=== PATIENT | female | born 1965 | race Caucasian/White ===

== ENCOUNTER → 2017-05-08 14:23 | Outpatient (CLI) | payer OTHER, SELFPAY ==
--- NOTE | 2017-05-08 14:30 | RAD_ITS ---
STUDY: X-RAY CHEST REASON FOR EXAM: Female, 51 years old. Cough. TECHNIQUE: PA and lateral views of the chest. COMPARISON: Portable AP upright chest x-ray July 14, 2016. FINDINGS: The lungs are clear and expanded. There is no demonstrated pleural abnormality. Normal size heart. Normal mediastinum and katherin. Normal visualized pulmonary arteries. Normal visualized aortic arch and descending thoracic aorta. There are mild degenerative changes of the mid thoracic spine. There is a ventral bowing/carinatum deformity of the sternum. There is stable degenerative osteoarthritis of the bilateral acromioclavicular joints. There is no demonstrated abnormality of the visualized soft tissue structures of the upper abdomen. RAD/Chest PA and Lateral IMPRESSION: No acute cardiopulmonary disease. Electronically Signed: Trever Maria MD at 19:02 EST , Service support ,
[2017-05-08 16:03] LABS: Absolute Lymphocyte Count 1.56 X10^3/ul (0.83-4.51); Absolute Neutrophil Count 4.9 X10^3/uL (2.0-7.7); Basophil# 0.01 X10^3/uL; Basophil% 0.1 % (0-1); Eosinophil# 0.12 X10^3/uL; Eosinophils% 1.7 % (0-5); Hematocrit 37.8 % (37-47); Hemoglobin 12.8 g/dl (12.0-15.0); Lymphocyte # 1.56 X10^3/ul (4.0); Lymphocyte % 21.7 % (19-41); Mean Corp Hgb Conc 33.9 g/gl (32-36); Mean Corpuscular Volume 91.5 fL (81-99); Mean Platelet Vol. 10.7 fl (6.2-12.0); Monocyte# 0.57 X10^3/uL; Monocyte% 7.9 % (0-10); Neutrophil # 4.92 X10^3/uL (2.7-7.7); Neutrophil % 68.5 % (47-70); Platelet Count 303 K/mm3 (150-450); RBC Distribution Width CV 12.6 % (11.6-14.6); RBC Distribution Width SD 41.8 fl (35.1-43.9); Red Blood Count 4.13 M/mm3 (4.2-5.4); White Blood Count 7.2 K/mm3 (4.4-11.0)
[2017-05-08 16:05] LABS: POSITIVE COUNT NO; POSITIVE DIFFERENTIAL NO; POSITIVE MORPHOLOGY NO
[2017-05-08 16:19] LABS: CRP < 2.90 mg/L (0.0-3.0)
== END ==
PROVIDERS: Family Provider Family Medicine; PCP Family Medicine; Visit Provider Family Medicine
DX: R05 Cough (principal)
CPT/HCPCS: 36415; 71046; 85025; 86140

== ENCOUNTER → 2017-08-19 16:55 | Outpatient (CLI) | payer OTHER, SELFPAY ==
[2017-08-19 17:57] LABS: Absolute Lymphocyte Count 1.73 X10^3/ul (0.83-4.51); Absolute Neutrophil Count 4.5 X10^3/uL (2.0-7.7); Basophil# 0.02 X10^3/uL; Basophil% 0.3 % (0-1); Eosinophil# 0.09 X10^3/uL; Eosinophils% 1.3 % (0-5); Hematocrit 39.4 % (37-47); Hemoglobin 13.7 g/dl (12.0-15.0); Lymphocyte # 1.73 X10^3/ul (4.0); Lymphocyte % 25.4 % (19-41); Mean Corp Hgb Conc 34.8 g/gl (32-36); Mean Corpuscular Hgb 31.7 pg (27.0-32.0); Mean Corpuscular Volume 91.2 fL (81-99); Mean Platelet Vol. 10.7 fl (6.2-12.0); Monocyte# 0.45 X10^3/uL; Monocyte% 6.6 % (0-10); Neutrophil # 4.51 X10^3/uL (2.7-7.7); Neutrophil % 66.3 % (47-70); Platelet Count 274 K/mm3 (150-450); RBC Distribution Width CV 12.2 % (11.6-14.6); RBC Distribution Width SD 39.9 fl (35.1-43.9); Red Blood Count 4.32 M/mm3 (4.2-5.4); White Blood Count 6.8 K/mm3 (4.4-11.0)
[2017-08-19 18:05] LABS: POSITIVE COUNT NO; POSITIVE DIFFERENTIAL NO; POSITIVE MORPHOLOGY NO
[2017-08-19 18:06] LABS: Erythrocyte Sedimentation Rate 9 mm/hr (0-30)
[2017-08-19 18:40] LABS: ALB/GLOB Ratio 1.1 RATIO (0.9-2.4); AST(SGOT) 21 U/L (15-37); Alanine Aminotransfer ALT/SGPT 32 U/L (13-56); Albumin, Serum 4.1 g/dL (3.2-5.0); Alkaline Phosphatase 74 U/L (45-117); Anion Gap 7 (5-15); BUN 16 mg/dL (7-18); BUN/Creat Ratio 19.2 RATIO (10-20); CRP < 2.90 mg/L (0.0-3.0); Chloride 102 mmol/L (98-107); Creatinine, Serum 0.84 mg/dL (0.55-1.02); EST Glomerular Filtration Rate 76 mL/min (>60); Est Glom Filt Rate - Afr Amer 92 mL/min (>60); Globulin 3.9 g/dL (2.2-4.2); Glucose 105 mg/dL (74-106); Potassium 3.6 mmol/L (3.5-5.1); Rheumatoid Factor < 10.0 IU/mL (<15); Sodium Level 139 mmol/L (136-145)
[2017-08-21 14:08] LABS: SJOGREN'S Anti-SS-A test < 0.2 AI (0.0-0.9); SJOGREN'S Anti-SS-B test < 0.2 AI (0.0-0.9)
[2017-08-22 11:23] LABS: ANTINUCLEAR ANTIBODIES DIRECT Positive (Negative); Anti-dsDNA Ab <1 IU/mL (0-9)
[2017-08-27 17:58] LABS: CCP IgG Antibodies 2 units (0-19); HLA B27 Positive (.)
== END ==
PROVIDERS: Family Provider Family Medicine; PCP Family Medicine
DX: M06.09 Rheumatoid arthritis without rheumatoid factor, multiple sites (principal)
CPT/HCPCS: 36415; 80053; 81374; 85025; 85652; 86038; 86140; 86200; 86225; 86235; 86431

== ENCOUNTER 2019-03-25 11:30 | Outpatient (RCR) | payer OTHER, SELFPAY ==
--- NOTE | 2019-01-14 12:23 | HP.OTEVAL ---
Patient's Visit Information MAZIN DEGROOT is a 53 year old F, referred to Occupational Therapy by Roberto Gasca, with a diagnosis of primary osteoarthritis right hand. Date of Evaluation: 01/12/19 Occupational Therapist: Breanne Mack, OTR/Rosa, CHT - Subjective Subjective: This 53 year old female was seen for OT eval following a right RF PIP joint replacement- sx was two weeks ago, pt arrives to clinic following stitches removal and in need of instructions on PROM. pt states she struggled with joint pain for years. Due to her limited ROM and pain pt decided to have right RF joint replacement. Pt arrives with stitches out and order for PROM of right RF- - ADLs Dressing: Button shirt, Necktie, Necklace Fasteners: Buttons, Zippers Bathing: Handle washcloth & soap, Squeeze shampoo bottle Kitchen: Chop with knife, Peel fruits & vegetables, Open jars, Open bottle caps, Take dish out of oven Miscellaneous: Play musical instrument - Pain right hand 2 Pain Intensity Range: 2, 7 - ROM MP: left 80 right 55 PIP: left 95 right 0 ROM Comments: PROM of right PIP 5* - Strength Strength Comments: will test at later date - Edema PIP: right 7.8 left 6.0 - Sensation Sensation Comments: finger get sharp shooting pains - Quick DASH-Disab of Arm,Shoulder& Hand Quick DASH Score: 76.3150 - Goals Goal:100% adherence to protocol: Yes Comment: PIP joint replacement protocol - Goal:Daily scar massage when approriate: Yes Goal:ROM equal to unaffected hand: Yes 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 Pt in need of skilled OT services 2-3x week for 6 weeks to progress pt during this recovery phase of her procedure. Today therapist ed. pt on PROM of right RF, edmea control, and scar mtg. Therapy will progress pt as anna. and per order to return pt to PLOF. pt demo understanding and agree to POC. Rehabilitation Potential: Good - Anticipated Interventions Anticipated Interventions: A/AAROM/PROM, Edema Control, Scar Care, Sensory Retraining, Wound Care, Modalities, Orthoses, Joint Protection/Energy Conservation - Visit Plan Frequency: 2-3x /Week Duration: 6 Weeks TEXT: Thank you for the opportunity to evaluate your patient. For Medicare and Medicare HMO plans, please review the plan of care and approve it. It will need to be FAXED BACK to us at [phone] for Medicare purposes. Please let me know if there are questions or concerns regarding this plan of care. Physician Signature: Date:
--- NOTE | 2019-03-25 12:22 | HP.OTDCSUM_ITS ---
HP - OT D/C Summary It has been my pleasure to treat MAZIN DEGROOT under orders from Roberto Gasca, for the diagnosis of primary osteoarthritis right hand for a total of 22 visit(s). Please see the following information for a summary of their discharge status. - Overall Improvement % Improvement: 100 - Objective Objective/Function: right RF PIP ROM -20-30/60-70. right access services assistant strength 18#. pt has made gains in ROM and strength- pt reports she is SANDRO with ADLS and due to limitations with strength will not be able to return to her [employer] career limitations. - Goals Patient Goals: Regain Mobility, Improve Fine Motor Skills, Use Hand/Wrist/Arm Normally Again Goal:100% adherence to protocol: Yes Goal:Daily scar massage when approriate: Yes Goal:ROM equal to unaffected hand: Yes Goal:Director Print/Pinch strength at least 75% of unaffected hand: Yes Goal:No pain with affected hand use: Yes Goal:PIP Circumferences equal to unaffected hand: Yes Goal:Full use of affected hand in daily activities including: Yes Goal:Decrease scar hypersensitivity: Yes - Plan Plan: D/C - D/C Information Discharge Comments: Pt progressed well following her right RF arthroplasty- pt is SANDRO with ADLS and IADLs- pt met goals in OT and to cont with use of her right UE for daily tasks. Due to replacement of joint pt will not be able to return to her [employer]/ [employer] work. 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 If there are questions or concerns regarding this patient's occupational therapy, please fell free to call me at [phone]. Thank you for the referral of this patient. Sincerely, Breanne Mack, OTR/L, CHT
== END 2019-03-25 19:00 | disposition home or self-care (01) ==
LOC: OT 11:30
PROVIDERS: Family Provider Family Medicine; PCP Family Medicine; Referring Provider Orthopaedic Surgery Hand Surgery; Visit Provider Orthopaedic Surgery Hand Surgery
DX: M19.041 Primary osteoarthritis, right hand (principal)
CPT/HCPCS: 97035; 97110; 97140; 97166; 97168; 97530

== ENCOUNTER → 2019-05-14 14:16 | Outpatient (CLI) | payer OTHER, SELFPAY ==
[2019-05-14 16:17] LABS: Rubella IgG 130.7 IU/mL
[2019-05-17 20:04] LABS: Mumps Antibody,IgG 72.6 AU/mL (Immune >10.9); Rubeola IgG Ab > 300.0 AU/mL (Immune >16.4)
== END ==
PROVIDERS: PCP Family Medicine; Visit Provider Family Medicine
DX: Z92.29 Personal history of other drug therapy (principal)
CPT/HCPCS: 36415; 86735; 86762; 86765

== ENCOUNTER → 2019-08-09 15:28 | Outpatient (CLI) | payer OTHER, SELFPAY ==
[2019-08-10 07:31] LABS: SARS-COV-2 TOTAL ABS Nonreactive (Nonreactive)
== END ==
PROVIDERS: PCP Family Medicine; Referring Provider Family Medicine; Visit Provider Family Medicine
DX: Z20.828 Contact with and (suspected) exposure to other viral communicable diseases (principal)
CPT/HCPCS: 86769; G2023

== ENCOUNTER → 2019-08-13 11:05 | Outpatient (CLI) | payer OTHER, SELFPAY ==
--- NOTE | 2019-08-13 11:09 | CDU_ITS ---
Reason For Study: ENCEPHALITIS Rt. Velocities/BP Lt. Velocities/BP Prox CCA 97/24 cm/sec. Prox CCA 125/41 cm/sec. Mid CCA 87/23 cm/sec. Mid CCA 108/32 cm/sec. Dist CCA 53/21 cm/sec. Dist CCA 115/30 cm/sec. Prox ICA 134/48 cm/sec. Prox ICA 90/24 cm/sec. Mid ICA 121/35 cm/sec. Mid ICA 92/33 cm/sec. Dist ICA 68/26 cm/sec. Dist ICA 110/44 cm/sec. Rt. ICA/CCA = 1.4. Lt. ICA/CCA = 1.0. Prox ECA 102/15 cm/sec. Prox ECA 86/15 cm/sec. Rt. Vert. 48/12 cm/sec. Lt. Vert. 43/17 cm/sec. Right Extracranial There is homogeneous, smooth atherosclerotic plaque noted in the right common carotid artery. There is heterogeneous, irregular atherosclerotic plaque noted in the right internal carotid artery. There is homogeneous, smooth atherosclerotic plaque noted in the right external carotid artery. Antegrade flow is noted in the right vertebral artery. There is heterogeneous, smooth atherosclerotic plaque noted in the right bulb. Left Extracranial There is homogeneous, smooth atherosclerotic plaque noted in the left common carotid artery. There is homogeneous, smooth atherosclerotic plaque noted in the left internal carotid artery. There is homogeneous, smooth atherosclerotic plaque noted in the left external carotid artery. Antegrade flow is noted in the left vertebral artery. There is homogeneous, smooth atherosclerotic plaque noted in the left bulb. Procedure Carotid Duplex [id number]. Exam performed in department. Interpretation Summary The degree of stenosis in the right internal carotid artery appears to approach 50%. Mild (<50%) stenosis left extracranial internal carotid. Flow within the vertebral arteries is antegrade bilaterally. Atherosclerotic plaque is noted in the carotid bulbs bilaterally, which does not appear to be hemodynamically significant. Ordering Physician: Coco, Gabino Referring Physician: Gabino Sepulveda Performed By: Lea Griffin, DAVONTE, RVT
== END ==
PROVIDERS: PCP Family Medicine; Referring Provider Family Medicine; Visit Provider Family Medicine
DX: I65.23 Occlusion and stenosis of bilateral carotid arteries (principal)
CPT/HCPCS: 93880

== ENCOUNTER → 2020-02-09 10:22 | Outpatient (CLI) | payer OTHER, SELFPAY | PROVIDERS: PCP Family Medicine; Visit Provider Family Medicine | DX: Z20.828 Contact with and (suspected) exposure to other viral communicable diseases (principal) | CPT/HCPCS: 36415; 86769 ==

== ENCOUNTER 2020-09-25 11:00 | Outpatient (RCR) | payer OTHER, SELFPAY ==
--- NOTE | 2020-09-02 09:19 | HP.PTEVAL_ITS ---
Patient's Visit Information MAZIN DEGROOT is a 54 year old F referred to Physical Therapy by Dr. Tate Pineda MD with a diagnosis of S/P labral repair and subsequent hip flexor tendonitis. Date of Evaluation: 08/22/20 Physical Therapist: Alex Mckinney DPT - Visit Plan Frequency: 2x /Week Duration: 4 Weeks Plan: Start with R hip stretching, manual DFM to R hip flexor, DN to same region. Add in posterior chain strengthening slowly adding in hip flexor strengthening (Do not over stress hip flexor tendon causing increased symptoms.) - Subjective Pt. is here today for her initial evaluation S/P labral repair and subsequent hi p flexor tendonitis. Pt. is ~ 3 months out of surgery at this point in time. She had been having PT at an alternate facility which was going well. She did recently have increased R hip pain, physician linked to hip flexor tendonitis and would like her to work on ROM and DN to calm her symptoms. 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 No issues with sleeping. No N/T. Pain with twisting on her R leg and with quick movements. She is walking well without issues. She is hopeful to reduce symptoms. She has been doing a good amount of strengthening and tolerating pretty well. She does report being stiff. Pt. is hopeful to reduce symptoms in order to get back to all work and recreational activities without limitations. - Pain R hip flexor Pain Intensity (Out of 10): 3 Pain Intensity Range: 1, 8 - Objective POSTURE: Pt. has good posture in stance. No wt. shifting, normal hip positioning. PALPATION: pt. has increased tenderness at R hip flexor, rectus femoris tendons. Pt. has minimal quad pain. NEURO: Normal sensation throughout BLEs. Normal DTR of B Achilles and patellar tendons. ROM: L hip- full motion no issues. R hip: flexion 110deg mild increase nW, ER 30deg increase NW (tightness), IR 15deg increase NW, ext 10deg NE (tightness), abd 45deg NE. MMT: LLE: 5/5 throughout. LLE- ankle 5/5 throughout; knee 5/5 throughout; hip- flexion 4/5, abd 4/5, ext 4/5. Mild increase in hip flexor pain with hip flexion testing. - Goals Goal 1:: LTG: Pt. to be I with HEP. Goal Time Frame: 4-6 Weeks Goal 2:: STG: Pt. to be able to walk unlimited distances without occurrence of increased R hip pain. Goal Time Frame: 2-4 Weeks Goal 3:: STG: PT. to have full R hip ROM without increase in symptoms. Goal Time Frame: 2 Weeks Goal 4:: LTG: Pt. to have increased strength of R hip to full without increase in symptoms. Goal Time Frame: 4-6 Weeks - Rehabilitation Potential Physical Therapy Diagnosis: Pt. has signs and symptoms consistent with S/P labral repair and subsequent hip flexor tendonitis. Pt. has marked hypomobility with hip ER motions and increased soreness with hip flexion resisted movements. Pt. would benefit from PT to increase her ROM and reduced her hip flexor symptoms. Rehabilitation Potential: Excellent - Anticipated Interventions Patient/Client Instruction: Educate patient on: Condition, Plan of Care, Risk Factors, Benefits of Fitness Program For the Purpose of:: To foster healthy habits, To improve decision making, To facilitate caregiver knowledge, To improve self management, To prevent re- injury, To improve ability to perform tasks related to life management Therapeutic Exercise to Include: Strength training, Endurance training, Body mechanics, Postural training, Flexibilty training, Gait and locomotor training, Passive ROM, Active ROM For the Purpose of:: To decrease pain, To decrease swelling/inflammation, To increase ROM, To improve nutrient delivery to tissue, To increase oxygenation perfusion, To improve muscle performance and motor function, To improve health of tissue, To decrease soft tissue restriction, To increase flexibility/ROM Manual Therapy Techniques to Include: Mobilization, Functional dry needling, Soft tissue mobilization For the Purpose of:: To decrease pain, To decrease swelling/inflammation, To increase ROM Thank you for the opportunity to evaluate your patient. For Medicare and Medicare HMO plans, please review the plan of care and approve it. It will need to be FAXED BACK to us at [phone] for Medicare purposes. For Medicare only, by signing this I certify the plan of care. Please let me know if there are questions or concerns regarding this plan of care. Physician Signature: Dat e:
--- NOTE | 2021-02-06 11:48 | HP.PTDCNRP_ITS ---
MAZIN DEGROOT was seen in my office for initial evaluation on 08/22/20. The following Plan of Care was established for this patient: Initial Frequency: 2x /Week Initial Duration: 4 Weeks Patient/Client Instruction: Educate patient on: Condition, Plan of Care, Risk Factors, Benefits of Fitness Program For the Purpose of:: To foster healthy habits, To improve decision making, To facilitate caregiver knowledge, To improve self management, To prevent re- injury, To improve ability to perform tasks related to life management Therapeutic Exercise to Include: Strength training, Endurance training, Body mechanics, Postural training, Flexibilty training, Gait and locomotor training, Passive ROM, Active ROM For the Purpose of:: To decrease pain, To decrease swelling/inflammation, To increase ROM, To improve nutrient delivery to tissue, To increase oxygenation perfusion, To improve muscle performance and motor function, To improve health of tissue, To decrease soft tissue restriction, To increase flexibility/ROM Manual Therapy Techniques to Include: Mobilization, Functional dry needling, Soft tissue mobilization For the Purpose of:: To decrease pain, To decrease swelling/inflammation, To increase ROM This patient was last seen in our office 09/25/20. Pertinent comments regarding their Physical therapy will appear below: Pt. was seen for her R hip labral tear. Pt. was working on ROM, manual/DN and progressed to posterior chain strengthening. She has not been seen in several months and will be DC from PT at this point in time. At this point I will be discontinuing this patient from physical therapy. I would be happy to see this patient again in the future if found appropriate by the physician. Thank you! Alex Mckinney, DPT Balance/Gait/Functional tests - Balance/Special Test Scores Lower Extremity Functional Score: 57
== END 2020-09-25 19:00 | disposition home or self-care (01) ==
LOC: PT 11:00
PROVIDERS: PCP Family Medicine; Referring Provider Orthopaedic Surgery Sports Medicine; Visit Provider Orthopaedic Surgery Sports Medicine
DX: M25.851 Other specified joint disorders, right hip (principal)
CPT/HCPCS: 97110; 97140; 97161

== ENCOUNTER → 2021-02-28 07:33 | Outpatient (CLI) | payer OTHER, SELFPAY ==
[2021-02-28 10:15] LABS: Basophil# 0.02 X10^3/uL; Basophil% 0.5 % (0-1); Eosinophil# 0.12 X10^3/uL; Eosinophils% 3.2 % (0-5); Hematocrit 40.7 % (37-47); Hemoglobin 13.9 g/dL (12.0-15.0); Lymphocyte % 31.9 % (19-41); Mean Corp Hgb Conc 34.2 g/dL (32-36); Mean Corpuscular Hgb 31.5 pg (27.0-32.0); Mean Corpuscular Volume 92.3 fL (81-99); Monocyte% 10.6 % (0-10); NRBC Flagged by Analyzer 0 % (0-5); Neutrophil # 2.01 X10^3/uL (2.7-7.7); Neutrophil % 53.5 % (47-70); Platelet Count 298 K/mm3 (150-450); RBC Distribution Width SD 40.9 fl (35.1-43.9); Red Blood Count 4.41 M/mm3 (4.2-5.4); White Blood Count 3.8 K/mm3 (4.4-11.0)
[2021-02-28 10:33] LABS: Vitamin D,25 Hydroxy 43.4 ng/mL
[2021-02-28 10:53] LABS: ALB/GLOB Ratio 1.1 RATIO (0.9-2.4); AST(SGOT) 31 U/L (15-37); Alanine Aminotransfer ALT/SGPT 40 U/L (13-56); Albumin, Serum 4.1 g/dL (3.2-5.0); Alkaline Phosphatase 85 U/L (45-117); Anion Gap 7 (5-15); BUN 13 mg/dL (7-18); BUN/Creat Ratio 20.6 RATIO (10-20); Calcium,Total 9.4 mg/dL (8.5-10.1); Chloride 97 mmol/L (98-107); Cholesterol 238 mg/dL (200); Creatinine, Serum 0.63 mg/dL (0.55-1.02); EST Glomerular Filtration Rate 104 mL/min (>60); Est Glom Filt Rate - Afr Amer 126 mL/min (>60); Globulin 3.8 g/dL (2.2-4.2); Glucose 89 mg/dL (74-106); High Density Lipoprotein 74 mg/dL; Potassium 3.9 mmol/L (3.5-5.1); Protein, Total 7.9 g/dL (6.4-8.2); Sodium Level 132 mmol/L (136-145); T4 Free Direct 0.77 ng/dL (0.76-1.46); Thyroid Stim Hormone (TSH) 3.18 uIU/mL (0.358-3.74); Triglycerides 81 mg/dL; Very Low Density Lipoprotein 16 mg/dL (5-40)
== END ==
PROVIDERS: PCP Family Medicine; Referring Provider Family Medicine; Visit Provider Family Medicine
DX: Z00.00 Encounter for general adult medical examination without abnormal findings (principal); E55.9 Vitamin D deficiency, unspecified; R53.83 Other fatigue
CPT/HCPCS: 36415; 80053; 80061; 82306; 84439; 84443; 85025

== ENCOUNTER → 2022-09-27 | Outpatient (CLI) | payer BC, SELFPAY ==
[2022-09-27 10:33] LABS: Erythrocyte Sedimentation Rate 1 mm/hr (0-30)
[2022-09-27 10:35] LABS: Absolute Lymphocyte Count 0.82 X10^3/uL (0.83-4.51); Absolute Neutrophil Count 3.1 X10^3/uL (2.0-7.7); Basophil# 0.02 X10^3/uL; Basophil% 0.5 % (0-1); Eosinophil# 0.06 X10^3/uL; Eosinophils% 1.4 % (0-5); Hematocrit 39.9 % (37-47); Hemoglobin 13.2 g/dL (12.0-15.0); Lymphocyte # 0.82 X10^3/ul (0.83-4.51); Lymphocyte % 18.5 % (19-41); Mean Corp Hgb Conc 33.1 g/dL (32-36); Mean Corpuscular Hgb 31.3 pg (27.0-32.0); Mean Corpuscular Volume 94.5 fL (81-99); Mean Platelet Vol. 10.8 fl (6.2-12.0); Monocyte# 0.46 X10^3/uL; Monocyte% 10.4 % (0-10); NRBC Flagged by Analyzer 0 % (0-5); Neutrophil # 3.06 X10^3/uL (2.7-7.7); Platelet Count 339 K/mm3 (150-450); RBC Distribution Width CV 11.9 % (11.6-14.6); RBC Distribution Width SD 40.8 fl (35.1-43.9); Red Blood Count 4.22 M/mm3 (4.2-5.4); White Blood Count 4.4 K/mm3 (4.4-11.0)
[2022-09-27 11:14] LABS: ALB/GLOB Ratio 1.1 RATIO (0.9-2.4); AST(SGOT) 24 U/L (15-37); Alanine Aminotransfer ALT/SGPT 31 U/L (13-56); Albumin, Serum 4.1 g/dL (3.2-5.0); Alkaline Phosphatase 94 U/L (45-117); Anion Gap 3 (5-15); BUN 10 mg/dL (7-18); BUN/Creat Ratio 15.4 RATIO (10-20); CRP < 2.90 mg/L (0.0-3.0); Calcium,Total 9.2 mg/dL (8.5-10.1); Chloride 98 mmol/L (98-107); Cholesterol 183 mg/dL (200); Creatinine, Serum 0.65 mg/dL (0.55-1.02); EST Glomerular Filtration Rate 99 mL/min (>60); Est Glom Filt Rate - Afr Amer 120 mL/min (>60); Globulin 3.7 g/dL (2.2-4.2); Glucose 108 mg/dL (74-106); High Density Lipoprotein 66 mg/dL; Potassium 4.3 mmol/L (3.5-5.1); Protein, Total 7.8 g/dL (6.4-8.2); Sodium Level 132 mmol/L (136-145); Triglycerides 185 mg/dL; Very Low Density Lipoprotein 37 mg/dL (5-40)
== END | disposition home or self-care (01) ==
PROVIDERS: PCP Family Medicine; Referring Provider Family Medicine; Visit Provider Family Medicine
DX: Z00.00 Encounter for general adult medical examination without abnormal findings (principal); R53.83 Other fatigue; R22.2 Localized swelling, mass and lump, trunk
CPT/HCPCS: 36415; 80053; 80061; 84443; 85025; 85652; 86140

== ENCOUNTER 2022-10-08 08:00 | Outpatient (RCR) | payer BC, SELFPAY ==
--- NOTE | 2022-09-27 09:47 | HP.PTEVAL_ITS ---
Patient's Visit Information Visit Information Visit Information: MAZIN DEGROOT is a 56 year old F referred to Physical Therapy by Dr. Andrew Collins DO with a diagnosis of CERVICALGIA, SPRAIN OF R SC JT. Date of Evaluation: 09/27/22 Physical Therapist: Galina Tirado PT, Cert MDT Visit Plan Frequency: 2-3x /Week Duration: 4-6 Weeks Plan: *CHECK AUTH NEXT VISIT: RECORD # OF VISITS APPROVED AND EXPIRATION DATE. CHECK CODES APPROVED WITH POC* ASK ABOUT bloodwork RESULTS. CONSIDER US TO RIGHT NECK, SHLD AND SC JT REGIONS. POSTURE CORRECTION/STRENGTHENING, INSTRUCTION IN APPROPRIATE BODY MECHANICS AND ACTIVITY MODIFICATIONS. YURIDIA UE ROM, STRETCHING AND STRENGTHENING. HEP INSTRUCTION. Subjective Subjective: Work/Leisure: RETIRED DUE TO TORN HIP cartilage and CAN NOT SHOE HORSES ANYMORE. 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 PATIENT REPORTS SHE PLAYS [employer] A LOT. PATIENT REP ORTS SHE IS ACTIVE - HIKES, WALKS AND PLAYS [employer] A LOT. Disability: NO Present symptoms: R NECK PAIN. RIGHT CHEST PAIN THAT RADIATES INTO R NECK AND SHLD AREA. STATES SHE HAS LONG HISTORY OF NECK PAIN AND THE NEW R CHEST PAIN HAS FLARED UP HER NECK. DENIES R UE NUMBNESS AND TINGLING. Present since: ABOUT 2 MONTHS AGO Pain Scale: Worst - 8/10 Least - 2/10 Currently: 3-4/10. (NECK PAIN IS STAYING THE SAME. SLIGHT IMPROVEMENT IN R CHEST PAIN OVER THE LAST 2 MONTHS). 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 Symptoms at onset: NO PAIN JUST A BUMP IN R CHEST. Worse: VERY DEEP PALPATION ON BUMP TO FEEL A TENDERNESS BUT RIGHT CHEST AND SHOULD PAIN CAN SUDDENLY WAKE HER UP AT NIGHT WITH CERTAIN MVMTS. SITTING. LEANING DOWN AND PICKING THINGS UP FROM THE FLOOR. PUTTING ARMS CLOSE TOGETHER TO PICK SOMETHING UP. TRICEP PUSH UPS. REACHING ACROSS CHEST WITH R UE. BAD POSTURE/LOOKING DOWN. Better: PAIN MEDICATION - HYDROCODONE, WINE, AVOIDING OR STOPPING PROVOKATIVE MVMTS/POSITIONS. CHIROPRACTIC ADJUSTMENTS WITH LAST ONE BEING APPROX DEVANTE 3 2023. Disturbed sleep: YES Previous history/Previous treatment: CHIROPRACTIC ADJUSTMENTS SINCE AGE 18. C67 HNP AND SPUR VERY RECENTLY DX'S BUT PATIENT REPORTS SHE HAS HAD ISSUES WITH HER NECK, SHOULDERS AND BACK FOR YEARS AND YEARS. STATES HAD SKULL FRACTURE . 8 YEARS AGO WENT THROUGH A LOT OF PT FOR SHLD. R SHLD INJECTION. H/O R SHLD BLADE PAIN WITH POSSIBLE DX OF SUPRISPINATUS TEAR. This episode: CHIROPRACTIC Dizziness: NO Tinnitis: YES Nausea: YES WHEN IN A LOT OF PAIN Shortness of Breath: NO Difficulty Swollowing: NO Gait: NORMAL Unexplained weight loss: NO Imaging: RECENT NECK X-RAYS THEN MRI SHOWING HNP AND BONE SPUR C67 PER PATIENT REPORT. HAD MRI OF R SHLD AND clavicle AND THESE SHOWED FLUID IN CHEST AREA AND ARTHRITIS IN SHOULDER. PATIENT ALSO REPORTS HISTORY OF YURIDIA AC JOINT ARTHRITIS. PMH/Recent major surgery: ARTHRITIS. ACUSTIC NEUROMA, L2 FX 2006, CONCUSSION AND BRAIN BLEED 2007. L RIB FX'S...I'VE HAD A LOT OF TRAUMA TO MY BODY. R KNEE SX FOR TORN MENISCUS. R HIP SX FOR TORN LABRUM. R FINGER JOINT REPLACED 2018 OTHER: PATIENT REPORTS DR. COLLINS THINKS SHE HAS ARTHRITIS IN HER SC JOINT. STATES THAT DR. ORTEZ ORDERED BLOOD WORK TO MAKE SURE SHE DOESN'T HAVE INFECTION. Objective Objective: Sitting Posture/Standing Posture: INCREASED KYPHOSIS. FH. RSH'S L > R. NO TORTICOLLIS. Active Correction of posture: BETTER. PATIENT REPORTS DECREASED R CHEST AREA PAIN WITH POSTURE CORRECTION. Other Observations: INDEP GAIT AND TRANSFERS. Sensory deficit: YURIDIA UE LIGHT TOUCH SENSATION GROSSLY INTACT AND SYMMETRICAL ROM deficit: YURIDIA UE'S WFL BUT R SHLD IR TESTING IN SUPINE IS LIMITED AND REPRODUCES R CHEST, SHLD AND NECK SX'S THAT PATIENT REPORTS SHE IS HERE FOR TODAY. SUPINE IR ROM WITH 90 DEG ABD = 40 DEG. Motor deficit: PATIENT IS RIGHt HAND DOMINANT WITH A R HOME HEALTH AID STRENGTH OF 35 LBS, L 45 LBS. L UE STRENGTH IS WFL. R UE: SHLD 4-/5, ELBOW 5/5. PATIENT C/O INCREASED R NECK, SHLD AND CHEST PAIN WITH R SHLD TESTING INTO FLEX, HORIZ ABD, HORIZ ADD AND IR. Cervical Mvmt Loss: Flex: NIL Pro: NIL Ext: MIN TO MOD Ret: MOD RSB: MIN LSB: MOD R Rot: MIN L Rot: MIIN Postural strength: FAIR Palpation: NO ACUTE TENDERNESS WITH LIGHT PALPATION OF RIGHT clavicle, shld or sternum regions. Balance/Special Test Scores Oswestry Neck Score: 19 Goals Goal 1:: DECREASE C/O R NECK, CHEST AND SHLD PAIN Goal Time Frame: 4-6 Weeks Goal 2:: IMPROVE PERSONAL CARE, LIFTING, READING, SLEEP, WORK, DRIVING AND RECREATIONAL FUNCTION Goal Time Frame: 4-6 Weeks Goal 3:: INSTRUCT IN PROPHYLAXIS Goal Time Frame: 4-6 Weeks Anticipated Interventions Patient/Client Instruction: Educate patient on: Condition, Plan of Care and Risk Factors For the Purpose of:: To improve self management Therapeutic Exercise to Include: Strength training, Body mechanics, Postural training, Flexibilty training, Neuromotor development and Scapular Strength/Stabilization For the Purpose of:: To decrease pain, To increase ROM, To improve muscle performance and motor function, To increase tolerance to activity/condition/position and To improve ability of physical actions for home/community/work/leisure TENS: Yes IF ES: Yes Ultrasound (thermal/non thermal): Yes For the Purpose of:: To decrease pain and To improve nutrient delivery to tissue Text: Thank you for the opportunity to evaluate your patient. For Medicare and Medicare HMO plans, please review the plan of care and approve it. It will need to be FAXED BACK to us at [phone] for Medicare purposes. For Medicare only, by signing this I certify the plan of care. Please let me know if there are questions or concerns regarding this plan of care. Physician Signature: Date:
--- NOTE | 2022-12-31 10:45 | HP.PTDCNRP_ITS ---
Patient Information Patient Information: MAZIN DEGROOT was seen in my office for initial evaluation on 09/27/22. The following Plan of Care was established for this patient: POC Established Initial Frequency: 2-3x /Week Initial Duration: 4-6 Weeks Anticipated Interventions Patient/Client Instruction: Educate patient on: Condition, Plan of Care and Risk Factors For the Purpose of:: To improve self management Therapeutic Exercise to Include: Strength training, Body mechanics, Postural training, Flexibilty training, Neuromotor development and Scapular Strength/Stabilization For the Purpose of:: To decrease pain, To increase ROM, To improve muscle performance and motor function, To increase tolerance to activity/co ndition/position and To improve ability of physical actions for home/community/work/leisure TENS: Yes IF ES: Yes Ultrasound (thermal/non thermal): Yes For the Purpose of:: To decrease pain and To improve nutrient delivery to tissue Last Seen Last Seen: This patient was last seen in our office 10/10/22. Pertinent comments regarding their Physical therapy will appear below: This patient has not returned to Physical Therapy and is appropriate to return to MD for further follow-up as needed. At this point I will be discontinuing this patient from physical therapy. I would be happy to see this patient again in the future if found appropriate by the physician. Thank you! Galina Tirado, PT, Cert MDT Balance/Gait/Functional tests Balance/Special Test Scores Oswestry Neck Score: 19
== END 2022-10-08 19:00 | disposition home or self-care (01) ==
LOC: PT 08:00
PROVIDERS: PCP Family Medicine; Referring Provider Orthopaedic Surgery; Visit Provider Orthopaedic Surgery
DX: S43.61XD Sprain of right sternoclavicular joint, subsequent encounter (principal); M54.2 Cervicalgia
CPT/HCPCS: 97035; 97162; 97530

== ENCOUNTER → 2022-10-09 | Outpatient (CLI) | payer BC, SELFPAY ==
--- NOTE | 2022-10-09 07:30 | US_ITS ---
STUDY: SUPERFICIAL ULTRASOUND - RIGHT SUPRACLAVICULAR REGION. REASON FOR EXAM: Female, 56 years old. LOCALIZED SWELLING, MASS AND LUMP,supraclavicular TECHNIQUE: A superficial ultrasound was performed with real-time and static pagan-scale imaging. COMPARISON: None. FINDINGS: The palpable abnormality corresponds to a 1.9 cm x 2 cm x 1 cm complex heterogeneous solid mass. Biopsy recommended. US/Head/Neck Soft Tissue IMPRESSION: 1.9 cm x 2 cm x 1 cm complex heterogeneous solid mass corresponding to the palpable lump. Biopsy recommended. Electronically Signed: Lance Tolbert MD at 15:09 EDT ,
== END | disposition home or self-care (01) ==
LOC: US 07:27
PROVIDERS: PCP Family Medicine; Referring Provider Family Medicine; Visit Provider Family Medicine
DX: R22.2 Localized swelling, mass and lump, trunk (principal)
CPT/HCPCS: 76536

== ENCOUNTER → 2023-02-18 | Outpatient (CLI) | payer BC, SELFPAY ==
[2023-02-18 17:45] LABS: Absolute Lymphocyte Count 1.42 X10^3/uL (0.83-4.51); Absolute Neutrophil Count 3.6 X10^3/uL (2.0-7.7); Basophil# 0.02 X10^3/uL; Basophil% 0.4 % (0-1); Eosinophil# 0.07 X10^3/uL; Eosinophils% 1.2 % (0-5); Hematocrit 39.5 % (37-47); Lymphocyte # 1.42 X10^3/ul (0.83-4.51); Lymphocyte % 25.1 % (19-41); Mean Corp Hgb Conc 32.9 g/dL (32-36); Mean Corpuscular Volume 94.3 fL (81-99); Mean Platelet Vol. 10.7 fl (6.2-12.0); Monocyte% 8.8 % (0-10); NRBC Flagged by Analyzer 0 % (0-5); Neutrophil # 3.64 X10^3/uL (2.7-7.7); Neutrophil % 64.3 % (47-70); Platelet Count 291 K/mm3 (150-450); RBC Distribution Width CV 11.9 % (11.6-14.6); RBC Distribution Width SD 40.9 fl (35.1-43.9); Red Blood Count 4.19 M/mm3 (4.2-5.4); White Blood Count 5.7 K/mm3 (4.4-11.0)
[2023-02-18 18:02] LABS: CRP < 2.90 mg/L (0.0-3.0); Uric Acid 4.1 mg/dL (2.6-6.0)
[2023-02-18 18:18] LABS: Erythrocyte Sedimentation Rate 2 mm/hr (0-30)
[2023-02-20 12:08] LABS: ANTINUCLEAR ANTIBODIES DIRECT Negative (Negative)
== END | disposition home or self-care (01) ==
LOC: MTLAB 15:29
PROVIDERS: PCP Family Medicine; Referring Provider Orthopaedic Surgery; Visit Provider Orthopaedic Surgery
DX: M17.12 Unilateral primary osteoarthritis, left knee (principal)
CPT/HCPCS: 36415; 84550; 85025; 85652; 86038; 86140; 86431

== ENCOUNTER → 2023-03-25 | Outpatient (CLI) | payer BC, SELFPAY | END | disposition home or self-care (01) | LOC: PSN 09:32 | PROVIDERS: PCP Family Medicine; Referring Provider Physician Assistant; Visit Provider Physician Assistant | DX: Z01.810 Encounter for preprocedural cardiovascular examination (principal) | CPT/HCPCS: 93005 ==

== ENCOUNTER 2023-07-13 08:57 | Emergency (ER) | payer BC, SELFPAY ==
[2023-07-13 08:58] VITALS: BP 197/79; PULSE 81; RESP 18; TEMP 36.6; O2SAT 100; BMI 27.6
--- NOTE | 2023-07-13 09:28 | EDS_ITS ---
HPI HPI - Female History of Present Illness Chief Complaint: Complaint Detail of Chief Complaint: Dysuria and frequency Informant: patient Narrative Narrative: Patient presents the emergency department complaint of dysuria and frequency that started this morning. Patient states she had a mild backache yesterday but she had been on vacation and was up taking pictures all day and has history of arthritis so she did not think much of it. Today she described feeling like she needed to urinate frequently but only get small amounts of urine out. She felt chilled last night but has not had a fever. She has had no vomiting. No prior history of kidney stones. She described a deep pain over her bladder earlier today. PFSH PFSH Home Medications cholecalciferol (vitamin D3) 50 mcg (2,000 unit) capsule (Vitamin D3) 2,000 unit PO DAILY 07/14/16 [History Last Taken Unknown] hyalur ac-chond sul-colg II-AA 40 mg-80 mg-400 mg capsule (Hyaluronic Acid(with chondroitin-collagenII)) 1 ea PO DAILY 07/14/16 [History Last Taken Unknown] poxlpvvpjnij-Cl-xlnn-minerals (Multiple Vitamin, Womens tablet) 1 ea PO DAILY 07/14/16 [History Last Taken Unknown] turmeric 450 mg-turmeric root extract 50 mg capsule 500 mg PO DAILY 07/14/16 [History Last Taken Unknown] phenazopyridine 200 mg tablet (Pyridium) 200 mg PO TID #10 tabs 07/13/23 [Rx Last Taken Unknown] sulfamethoxazole 800 mg-trimethoprim 160 mg tablet 1 tab PO BID #14 TABLETS 07/13/23 [Rx Last Taken Unknown] Allergy/AdvReac Type Severity Reaction Status Date / Time Beta-Blockers Allergy Rash Verified 07/13/23 08:57 (Beta-Adrenergic Bloc bisoprolol Allergy Rash Verified 07/13/23 08:57 clarithromycin [From Biaxin] Allergy Rash Verified 07/13/23 08:57 latex Allergy Unknown Verified 07/13/23 08:57 morphine Allergy Angioedema Verified 07/13/23 08:57 tramadol Allergy Hives Verified 07/13/23 08:57 caffeine AdvReac Unknown Verified 07/13/23 08:57 Social History Smoking Status: Never smoker ROS ROS ED Review of Systems ROS Unobtainable: other Constitutional Constitutional ED: Reports lethargy; Denies chills, fever(s), sweats or weight loss Eyes Eyes: Denies blurry vision, change in vision or diplopia ENT ENT ED: Denies rhinorrhea or sore throat Cardiovascular Cardiovascular: Denies chest pain, orthopnea or racing heartbeat Respiratory/Chest Respiratory/Chest: Denies cough, dyspnea, dyspnea on exertion, orthopnea or sputum Gastrointestinal Gastrointestinal: Denies abdominal pain, diarrhea, nausea or vomiting Genitourinary Genitourinary ED: Reports dysuria and urinary frequency; Denies hematuria Musculoskeletal Musculoskeletal: Denies arthralgias, back pain, myalgias or neck pain Integumentary Denies abscess, Abrasions or rash Neurologic Neurologic: Denies headache(s) or weakness Psychiatric Psychiatric: Denies anxiety, depression or suicidal thoughts Endocrine Endocrinology: Denies polydipsia, polyphagia or polyuria Hematologic/Lymphatic Hematologic/Lymphatic: Denies easy bleeding, easy bruising or lymphadenopathy Allergic/Immunologic Allergic/Immunologic ED: Denies mouth swelling, tongue swelling or urticaria EXAM Physical Exam Const Vital Signs: 07/13/23 08:58 Temperature 97.9 F Temperature Source Temporal Pulse Rate 81 Respiratory Rate 18 Blood Pressure 197/79 H Blood Pressure Mean 118 Pulse Ox 100 Oxygen Delivery Method Room Air Positive well nourished and well developed General Appearance ED: well developed and NAD HEENT Reports TM's clear and moist mucous membranes normocephalic and atraumatic; Negative for trauma or tenderness Tympanic Membrane ED: Yes TM's clear Eyes PERRL and EOMs intact bilaterally General Eye ED: Negative for pale conjunctiva or scleral icterus Neck no lymphadenopathy, supple and no JVD General: Negative for tenderness Chest Wall inspection of chest normal and palpation of chest normal Chest: Negative for tenderness Resp normal respiratory effort and clear to auscultation bilaterally Effort and Inspection: Negative for respiratory distress or pain with movement Auscultation: Negative for rhonchi, wheezes or diminished lung sounds Cardio regular rate, regular rhythm, S1 normal heart sound, S2 normal heart sound and no murmurs Peripheral Pulses: pulses 2+ throughout GI normal to inspection, nondistended, normoactive bowel sounds, soft to palpation, non-tender, non-distended and no masses Back/Spine no CVA tenderness and no thoracic nor lumbar tenderness Extremity normal to inspection General Extremety ED: Negative for edema General Extremity: Negative for edema Neuro oriented x3, CN's II-XII intact bilaterally, no sensory deficits noted and gait normal Sensorium / Orientation: awake, alert, oriented to person, oriented to place and oriented to time Motor Exam: strength 5/5 throughout and strength abnormal Psych mental status grossly normal Skin no rashes or lesions noted and no wounds MDM MDM MDM Narrative Medical decision making narrative: Patient presents with dysuria as well as urgency and frequency and some hematuria. Clinically suspect UTI. Urinalysis obtained showed 500 leukocyte esterase as well as 25-50 RBCs and 25-50 WBCs and +1 bacteria. Culture was sent. Patient was started on Bactrim and Pyridium. Advised to return if worsening pain, fever, vomiting, or condition should worsen anyway. Lab Data Attestation: I reviewed the patient's lab results. Labs: Laboratory Results - last 24 hr 07/13/23 09:33 Urine Color Yellow Urine Clarity Sl. Cloudy Urine pH 7.0 Ur Specific [place] 1.005 Urine Protein Negative Urine Glucose (UA) Normal Urine Ketones Negative Urine Occult Blood 250 H Urine Nitrite Negative Urine Bilirubin Negative Urine Urobilinogen Normal Ur Leukocyte Esterase 500 H Urine RBC 25-50 SEEN Urine WBC 25-50 SEEN Ur Squamous Epith Cells 0 SEEN Urine Bacteria 1+ Urine Mucus 0 SEEN Discharge Plan Triage Chief Complaint: Complaint ED Provider: Sabina Quintero Dx/Rx/DC Orders Clinical Impression: Urinary tract infection Instructions: Urinary Tract Infections in Women, ED Cystitis Female Adult Prescriptions: New sulfamethoxazole-trimethoprim [sulfamethoxazole-trimethoprim] 800-160 mg tablet 1 tab PO BID Qty: 14 0RF phenazopyridine [Pyridium] 200 mg tablet 200 mg PO TID Qty: 10 0RF No Action imjdaxuzfqbp-Tu-ixqy-minerals [Multiple Vitamin, Womens] 1 EACH tablet 1 ea PO DAILY Patient Comments: multivitamin cholecalciferol (vitamin D3) [Vitamin D3] 2,000 UNIT capsule 2,000 unit PO DAILY Patient Comments: suppliment hyalur ac-chond sul-colg II-AA [Hyaluronic Acid (chond-collgn)] 1 EACH capsule 1 ea PO DAILY Patient Comments: suppliment turmeric-turmeric root extract 500 MG capsule 500 mg PO DAILY Patient Comments: suppliment Primary Care Provider: Gabino Sepulveda Referrals: Gabino Sepulveda, [Primary Care Provider] - 3-5 Days Disposition Disposition: Home, Self Care
[2023-07-13 09:37] LABS: Mucous, Urine 0 SEEN /hpf (<or=2+); Squamous Epithelial Cells - UA 0 SEEN /hpf (5-10)
[2023-07-13 09:39] LABS: Color, Urine Yellow (Yellow); Glucose, Dipstick Normal (Normal); Ketone-Dipstick Negative (Negative); Leukocyte Esterase-Dipstick 500 /ul (Negative); Nitrite-Dipstick Negative (Negative); Occult Blood-Urine 250 /ul (Negative); Protein-Dipstick Negative (Negative); Specific Gravity, Urine 1.005 (1.002-1.030); Urine Bilirubin Dipstick Negative (Negative); Urine Clarity Sl. Cloudy (Clear); Urine Urobilinogen Normal (Normal)
[2023-07-13 09:49] LABS: Bacteria 1+ /hpf (None Seen); Red Blood Cells-Urine 25-50 SEEN /hpf (0-5); White Blood Cells 25-50 SEEN /hpf (0-5)
[2023-07-13] MEDS: Phenazopyridine 95 MG Tablet 190 MG PO (10:55)
[2023-07-13] MEDS: Smz/Tmp Ds Tablet 1 TABLET PO (10:56)
== END 2023-07-13 11:00 | disposition home or self-care (01) ==
PROVIDERS: Emergency Provider Emergency Medicine; PCP Family Medicine; Visit Provider Emergency Medicine
DX: N39.0 Urinary tract infection, site not specified (principal)
CPT/HCPCS: 81001; 87077; 87086; 87088; 87186; 99283

== ENCOUNTER → 2024-05-07 | Outpatient (CLI) | payer BC, SELFPAY ==
--- NOTE | 2024-05-07 14:47 | RAD_ITS ---
PROCEDURE: CHEST PA AND LATERAL TECHNIQUE: Frontal and lateral views of the chest. COMPARISON: None. FINDINGS: Lungs: Lungs clear of pneumonia and congestion. Pleura: No pleural effusions, thickening, or pneumothorax. Heart: Normal in size and configuration. Mediastinum/Leyla: Unremarkable. Great vessels: Unremarkable. Bones/soft tissues: Unremarkable. RAD/Chest PA and Lateral IMPRESSION: No active cardiopulmonary disease. Reading Location: [place] [id number]
== END | disposition home or self-care (01) ==
LOC: MTRAD 14:44
PROVIDERS: PCP Family Medicine; Referring Provider Family Medicine; Visit Provider Family Medicine
DX: R05.9 Cough, unspecified (principal)
CPT/HCPCS: 71046

== ENCOUNTER 2024-11-14 02:26 | Emergency (ER) | payer BC, SELFPAY ==
[2024-11-14 02:33] VITALS: BP 157/108; PULSE 93; RESP 20; TEMP 36.7; O2SAT 100; BMI 29.3
--- NOTE | 2024-11-14 03:00 | EKG12_ITS ---
Test Reason : DYSRHYTHMIA Blood Pressure : */* mmHG Vent. Rate : 65 BPM Atrial Rate : 65 BPM P-R Int : 156 ms QRS Dur : 84 ms QT Int : 412 ms P-R-T Axes : 57 -11 32 degrees QTcB Int : 428 ms Normal sinus rhythm Cannot rule out Septal infarct (cited on or before 14-Jul-2016) Abnormal ECG Confirmed by Andrew Paris ([id number]), slot editor GENEVA LARRY ([id number]) on 11/15/2024 1:24:41 PM Referred By: ER Confirmed By: Andrew Paris
--- NOTE | 2024-11-14 03:00 | EX.ED.DYSGE1 ---
HPI History of Present Illness Chief Complaint: Hypertension Narrative Narrative: Patient is a 58-year-old female presenting to the emergency department for heart pounding and reports of hypertension. Patient has a past medical history of paroxysmal supraventricular tachycardia. She does not take any prescribed medications only vitamins at home. States that she did have a very stressful week last week. She reports that this evening she woke up to use the restroom when she noted that her heart was pounding. States it feels like she is on a hike. She denies any chest pain or shortness of breath. Denies headache, visual changes, numbness or weakness in her extremities, abdominal pain, nausea or vomiting. States she does not have a history of hypertension and does not take any antihypertensive medications. States that she laid back down in bed and continued to feel her heart pounding so she got up and checked her blood pressure and it was in the systolics of 170s. States she waited 5 minutes and checked her blood pressure again and it was in the 190s and then waited another 5 minutes and checked again and it was in the 200s and therefore woke her up to bring her into the emergency department. [facility] Medical History Osteoarth NOS-up/arm Home Medications ?Medication ?Instructions ?Recorded ?Last Taken ?Type cholecalciferol (vitamin D3) 50 2,000 unit PO DAILY 07/14/16 Unknown History mcg (2,000 unit) capsule (Vitamin D3) rowzwuxhvsck-Fu-xvgs-minerals 1 ea PO DAILY 07/14/16 Unknown History (Multiple Vitamin, Womens tablet) Allergy/AdvReac Type Severity Reaction Status Date / Time Beta-Blockers Allergy Rash Verified 11/14/24 02:29 (Beta-Adrenergic Bloc bisoprolol Allergy Rash Verified 11/14/24 02:29 clarithromycin (From Biaxin) Allergy Rash Verified 11/14/24 02:29 latex Allergy Unknown Verified 11/14/24 02:29 morphine Allergy Angioedema Verified 11/14/24 02:29 tramadol Allergy Hives Verified 11/14/24 02:29 caffeine AdvReac Unknown Verified 11/14/24 02:29 Social History Smoking Status: Never smoker ROS ROS ED ROS Narrative See HPI EXAM Physical Exam Narrative Exam Narrative: Vital signs: Reviewed General: Alert and oriented x 3. No acute distress HEENT: Head is normocephalic and atraumatic, sinuses nontender, pupils equal round and reactive. Nares are patent. Oropharynx and throat exams normal. Neck: Supple without lymphadenopathy nontender Cardiovascular: Regular rate and rhythm, no murmurs. No rubs or gallops. Normal S1 and S2 Respiratory: Clear to auscultation bilaterally. No wheezes, rales, rhonchi Abdominal: Soft and nontender. Normal bowel sounds. No guarding or rebound. Nonsurgical abdomen Extremities: No tenderness. No bruising. Normal range of motion. Normal sensation. Skin: No rash or redness. Neurological: Cranial nerves II through XII are grossly intact. Normal strength and sensation. Normal cerebellar function The rest of the physical exam is unremarkable Const Vital Signs: 11/14/24 02:33 Temperature 98.0 F Temperature Source Oral Pulse Rate 93 Respiratory Rate 20 H Blood Pressure 157/108 H Blood Pressure Mean 124 Pulse Ox 100 Oxygen Delivery Method Room Air NIHSS NIHSS Initial: 1a Level of Consciousness: 0 1b LOC Questions (Score 2 if aphasic/stupor): 0 1c LOC Commands (Only score 1st attempt): 0 2 Best Gaze (If aphasic, use reflexive mvmts.): 0 3 Visual: 0 4 Facial Palsy: 0 5 Motor Arm Right (UN = amputation/fusion): 0 5 Motor Arm Left: 0 6 Motor Leg Right: 0 6 Motor Leg Left: 0 7 Limb ataxia (Only + if out of proportion): 0 8 Sensory (Aphasia/stupor=0 or 1, coma=2): 0 9 Best Language: 0 10 Dysarthria (mute, coma=2, intubated=UN): 0 11 Extinction and Inattention (only scored if +): 0 Total Score: 0 MDM MDM MDM Narrative Medical decision making narrative: Patient is a 58-year-old female presenting to the emergency department for heart pounding and hypertension. Patient was seen and examined. Vitals are stable. She is hypertensive on arrival to 157/108. Resting in bed comfortably no acute distress. Patient has no signs of hypertensive urgency or emergency. She is having no headache, strokelike symptoms, shortness of breath, chest pain, abdominal pain or urinary symptoms. Given her symptoms of heart pounding I will obtain an EKG, troponin, electrolytes including magnesium and TSH as well as a chest x-ray. EKG shows normal sinus rhythm, no ST elevation or depression. No abnormal T wave inversions. No dysrhythmia. CBC with no leukocytosis and a normal hemoglobin. BMP with acute on chronic hyponatremia 127, otherwise no significant normalities. Usually appears to be around 132. Troponin and reflex stable at 9. TSH is elevated at 6.8, free T4 and T3 ordered and are within normal limits. Chest x-ray reviewed by myself, no opacities, pneumothorax, widened mediastinum. Radiology read with no acute radiographic abnormalities. Patient reevaluated and updated on the findings. She was notified of her elevated TSH but normal T3 and T4 and recommended follow-up with her PCP to continue watching this for signs of subclinical hypothyroidism. She was instructed to follow salt diet and follow-up with her primary care doctor for recheck of her sodium level as well. Negative cardiac workup. At this time I do not think it is indicated to start the patient on antihypertensives. I recommended that she follow-up with her primary care doctor to discuss this and to journal her blood pressures at home until then. Patient discharged from the Emergency Department. I do not feel that the patient's evaluation reveals any acute reason for admission at this time. I instructed them to either follow-up with their primary care physician or promptly return to the Emergency Department for reevaluation should symptoms worsen or new symptoms develop. I explained what symptoms would indicate the need to return to the emergency department. Shared decision making was used. The patient voiced understanding of the treatment plan and is agreeable with it. Clinical impression Hypertension Heart palpitations Elevated TSH History & Record Review Discussion w/independent historian: Patient and Family Additional record(s) reviewed:: Prior labs Lab Data Attestation: I reviewed the patient's lab results. Radiography Diagnostic Testing: Clinical Impression(s) from Imaging Studies Chest X-Ray 11/14/24 03:23 IMPRESSION: Negative for acute cardiopulmonary disease. Reading Location: [id number] Discharge Plan Triage Chief Complaint: Hypertension ED Provider: Ijeoma Sosa Dx/Rx/DC Orders Clinical Impression: Heart palpitations, HTN (hypertension) Instructions: Understanding High Blood Pressure, Understanding Heart Palpitations, ED Hypertension, To Be Confirmed Prescriptions: No Action Multiple Vitamin, Womens 1 EACH tablet 1 ea PO DAILY Patient Comments: multivitamin cholecalciferol (vitamin D3) [Vitamin D3] 2,000 UNIT capsule 2,000 unit PO DAILY Patient Comments: suppliment Primary Care Provider: Gabino Sepulveda Referrals: Gabino Sepulveda, DO [Primary Care Provider] - 2 Days Activity Restrictions/Additional Instructions: Follow-up with your primary care doctor to have your thyroid levels rechecked as well as to recheck your blood pressure to determine if you need to be started on any antihypertensives. Your evaluation in the Emergency Department did not reveal any acute reason for admission. However, I want to emphasize that you may be early in the course of a disease process or illness even if it is not present. For this reason you should follow-up within 24 hours for reevaluation with either your primary care physician or if necessary back here in the Emergency Department. You should return to the Emergency Department immediately if your symptoms worsen or new symptoms develop. Print Language: Syriac Disposition Disposition: Home, Self Care Discharge Date/Time: 11/14/24 05:17
[2024-11-14 03:16] LABS: Hematocrit 36.1 % (37-47); Hemoglobin 13.1 g/dL (12.0-15.0); Immature Granulocytes Count 0.010 X10^3/uL (0.0-0.0); Mean Corp Hgb Conc 36.3 g/dL (32-36); Mean Corpuscular Volume 90.7 fL (81-99); Mean Platelet Vol. 10.2 fl (6.2-12.0); NRBC Flagged by Analyzer 0 % (0-5); Platelet Count 307 K/mm3 (150-450); RBC Distribution Width CV 11.7 % (11.6-14.6); RBC Distribution Width SD 39.3 fl (35.1-43.9); Red Blood Count 3.98 M/mm3 (4.2-5.4); White Blood Count 6.1 K/mm3 (4.4-11.0)
--- NOTE | 2024-11-14 03:23 | RAD_ITS ---
PROCEDURE: CHEST 1 VIEW (PORTABLE) 11/14/2024 REASON FOR EXAM: CHEST PAIN TECHNIQUE: Frontal view of the chest. COMPARISON: May 2024. FINDINGS: Hardware and support lines: None. Heart: Negative. Lungs: Negative for infiltrates, or pulmonary edema. Pleura: No pleural thickening. No pleural effusion. Mediastinum and aorta: Negative for hilar adenopathy. Mildly tortuous thoracic aorta. Bones: Moderate degenerative changes of the shoulders. Slight curvature of the spine. Age-appropriate degenerative changes of the spine. Other: Remainder of the exam negative. RAD/Chest 1 View (Portable) IMPRESSION: Negative for acute cardiopulmonary disease. Reading Location: [id number]
[2024-11-14 03:27] VITALS: BP 172/77; PULSE 73; RESP 16; O2SAT 100
[2024-11-14 03:35] LABS: Anion Gap 13 (5-15); BUN 7 mg/dL (4-19); BUN/Creat Ratio 13.5 RATIO (10-20); Calcium,Total 9.4 mg/dL (7.6-11.0); Carbon Dioxide 22.7 mmol/L (21.0-32.0); Chloride 92 mmol/L (98-108); Estimated Creatinine Clearance 117.30 ml/min (50-250); Glucose 107 mg/dL (70-99); Magnesium 2.2 mg/dL (1.5-2.2); Potassium 3.5 mmol/L (3.3-5.1); Troponin T High Sensitivity 9 ng/L (<=14)
--- OUTSIDE RECORDS SUMMARY | 2024-11-14 03:50 | XMS RPT_ITS | CCD ---
Author Organization [facility] Care Team Providers Care Informaticist Name Role Phone PETER HERNÁNDEZ Unavailable Unavailable PETER HERNÁNDEZ Unavailable Unavailable NO REFERRING DR Unavailable Unavailable PETER HERNÁNDEZ Unavailable Unavailable IMCA Unavailable Unavailable HERNÁNDEZPETER Unavailable Unavailable IMCA Unavailable Unavailable LEVI, LINH Unavailable Unavailable IMCA Unavailable Unavailable PETER HERNÁNDEZ Unavailable Unavailable IMCA Unavailable Unavailable PETER HERNÁNDEZ Unavailable Unavailable IMCA Unavailable Unavailable IMCA Unavailable Unavailable LEVI, LINH Unavailable Unavailable IMCA Unavailable Unavailable ANTHONY, GALINA Unavailable Unavailable IMCA Unavailable Unavailable IMCA Unavailable Unavailable PETER HERNÁNDEZ Unavailable Unavailable IMCA Unavailable Unavailable IMCA Unavailable Unavailable PETER HERNÁNDEZ Unavailable Unavailabl e ANTHONY, GALINA Unavailable Unavailable PETER HERNÁNDEZ Unavailable Unavailabl e PETER HERNÁNDEZ Unavailable Unavailabl e PETER HERNÁNDEZ Unavailable Unavailabl e DARIA, PETER CALLUM Unavailable Unavailabl e HERNÁNDEZ, PETER CALLUM Unavailable Unavailabl e LEVI, LINH Unavailable Unavailable Angelina Ortez Unavailable Unavailable Unavailable Dr. Tracey Aguirre Attending Unav ailable Self, Referral Referring Unavailable Dr. Angelina Ortez Primary Care Unavaila DEBI Harris Attending Unavailable Self, Referral Referring Unavailable Dr. Angelina Ortez Primary Care Unavaila CECILE Benjamin Attending Unavailable Self, Referral Referring Unavailable Dr. Angelina Ortez Primary Care UnavailDr. Tracey Rosales Attending Unav ailable Dr. Angelina Ortez Primary Care UnavailAngelina Brooks DO Primary Care Provider [phone] Angelina Ortez DO Primary Care Provider Dr. Angelina Ortez Primary Care Provider [phone] Dr. Andrew Paris Attending Provider [phone] OTTONIEL Nguyen Referring Provider [phone] Angelina Ortez Primary Care Provider [phone] Dr. Andrew Paris Attending Provider OTTONIEL Nguyen Referring Provider [phone] Coco, Angelina Primary Care Unavailable Coco, Angelina Attending Unavailable Coco, Angelina Referring Unavailable Ungur, Remus Attending Unavailable Coco, Angelina Primary Care Unavailable Ferkarla, Suzette Attending Unavailable Ferkarla, Suzette Referring Unavailable Coco, Angelina Primary Care Unavailable Coco, Angelina Referring Unavailable Wero, Suzette Attending Unavailable Coco, Angelina Primary Care Unavailable Coco, Angelina Primary Care Unavailable Wero, Suzette Attending Unavailable Coco, Angelina Referring Unavailable Dr. Angelina Ortez DO Primary Care Provider [phone] Dr. Angelina Ortez DO Attending Provider [phone] Dr. Angelina Ortez DO Referring Provider [phone] Coco SOL, Angelina Garza Primary Care Provider Coco SOL, Angelina Garza Unavailable RJ WATERMAN Attending Unavailab le ANGELINA ORTEZ Primary Care Unavailable ELLY FALCON Attending Unavailable ANGELINA ORTEZ Primary Care Unavailable Allergies Allergy Classification Reported Allergen(s) Allergy Type Date of Onset Reaction(s) Facility (7 sources) Adrenergic Beta-Antagonist s; Translations: [BETA-BLOCKERS (BETA-ADRENERGI C BLOCKING AGTS)] Propensity to adverse reactions (disorder) 5 Dermatitis, Hives, Photosensitivity , Rash, Swelling [facility] Repository (15 sources) clarithromycin; Translations: [CLARITHROMYCIN ] Drug Allergy 7 GI Upset [facility] Repository (15 sources) Latex; Translations: [LATEX] Propensity to adverse reactions (disorder) 5 Dermatitis, Hives, Itching, Rash, Swelling [facility] Repository (19 sources) morphine; Translations: [MORPHINE] Drug Allergy 5 Anaphylaxis [facility] Repository (19 sources) traMADol; Translations: [TRAMADOL] Drug Allergy 5 Dermatitis, Hives, Itching, Palpitations, Rash, Shortness of breath, Swelling [facility] Repository (7 sources) Adrenergic Beta-Antagonist s Allergy to substance 7 [facility] (11 sources) Bisoprolol; Translations: [bisoprolol] Drug Allergy 7 Rash [facility] (7 sources) Caffeine Drug Allergy 7 [facility] (4 sources) Atenolol; Translations: [atenolol] Drug Allergy [facility] Work Phone: (4 sources) Clarithromycin; Translations: [Biaxin] Drug Allergy [facility] Work Phone: (4 sources) NSAIDs; Translations: [NSAIDs] Allergy to drug (finding) [facility] Work Phone: (4 sources) Latex Exam Gloves MISC; Translations: [Latex Exam Gloves MISC] Allergy to drug (finding) [facility] Work Phone: (5 sources) Aspartame; Translations: [ASPARTAME] Drug Allergy 3 GI Upset, Other [facility] (5 sources) Non-steroidal anti-inflammato ry agent; Translations: [NSAIDS (NON-STEROIDAL ANTI-INFLAMMATO RY DRUG)] Propensity to adverse reactions 3 Cardiac arrhythmia/arres t, GI Upset [facility] Work Phone: (5 sources) Oats preparation; Translations: [OATS] Drug Allergy 3 Other [facility] Work Phone: (1 source) tree nut, unspecified Propensity to adverse reactions 3 Hives [facility] Work Phone: (1 source) Adrenergic Beta-Antagonist s Drug allergy (disorder) 4 [facility] Repository (1 source) Bisoprolol Drug Allergy 4 [facility] Repository (1 source) Caffeine Drug Allergy 4 [facility] Repository (2 sources) EPINEPHrine; Translations: [EPINEPHRINE] Drug Allergy 0 Agitation, Cardiac arrhythmia/arres t, Palpitations [facility] Medications Current Medications Medication Drug Class(es) Dates Sig (Normalized) Sig (Original) acetaminophen 325 mg / HYDROcodone bitartrate 5 mg oral tablet (6 sources) Opioid Agonist HYDROcodone-acet valentin ophen (Morris) 5-325 mg tablet TAKE 1 OR 2 TABLETS BY MOUTH EVERY 6 HOURS FOR PAIN Active apixaban 2.5 mg oral tablet (2 sources) Factor Xa Inhibitor Start: 03-21-2023 take 1 tablet by mouth twice daily Eliquis 2.5 mg tablet Take 1 tablet (2.5 mg) by mouth 2 times a day. 03/21/2023 Active bimatoprost 0.3 mg/ml ophthalmic solution (2 sources) Prostaglandin Analog Start: 02-28-2023 bimatoprost (Lumigan) 0.03 % ophthalmic solution apply TO eyelid margin IN EACH EYE AT BEDTIME 02/28/2023 Active cholecalciferol 0.05 mg oral capsule (9 sources) Vitamin D Start: 07-14-2016 take 1 capsule by mouth once daily Cholecalciferol (Vitamin D3) (Vitamin D3) 2,000 UNIT capsule Active 2000 U PO DAILY July 14, 2016 12:00am Start: 07-11-2014 take 1 capsule by mo [facility] once daily cholecalciferol (Vitamin D-3) 50 mcg (2,000 unit) capsule Take 1 capsule (50 mcg) by mouth once daily. 07/11/2014 Active fexofenadine hydrochloride 180 mg oral tablet (6 sources) Histamine-1 Receptor Antagonist fexofenadine (Allegr a) 180 mg tablet Take by mouth. Active Kavya Allergy 180 MG Oral Tablet Quantity: 0 Refills: 0 Ordered: 18-Oct-2022 DO Active flavoring agent, bulk, (Grap efruit) oil (2 sources) flavoring agent, bulk, (Grapefruit) oil Grapefruit seed extract Active flavoring agent, bulk, (Grapefruit) oil Grapefruit seed extract 0 Active Hyalur Ac-Chond Sul-Colg Ii-Aa (Hyaluronic Acid (Chond-Collgn)) 1 EACH capsule (7 sources) Start: 07-14-2016 take 1 capsule by mouth once daily Hyalur Ac-Chond Sul-Colg Ii-Aa (Hyaluronic Acid (Chond-Collgn)) 1 EACH capsule Active 1 NMA PO DAILY July 14, 2016 12:00am Start: 07-14-2016 take 1 capsule by mo uth once daily Hyalur Ac-Chond Sul-Colg Ii-Aa (Hyaluronic Acid (Chond-Collgn)) 1 EACH capsule Active 1 EACH PO DAILY July 13, 2016 11:00pm Start: 07-14-2016 take 1 capsule by mo uth once daily Hyalur Ac-Chond Sul-Colg Ii-Aa (Hyaluronic Acid (Chond-Collgn)) 1 EACH capsule Active 1 EACH PO DAILY July 14, 2016 12:00am hyalur ac/chond sul/colg II/ AA (HYALURONIC ACID, CHOND-COLLGN, ORAL) (2 sources) hyalur ac/chond sul/colg II/AA (HYALURONIC ACID, CHOND-COLLGN, ORAL) Take by mouth. Active hyalur ac/chond sul/colg II/AA (HYALURONIC ACID, CHOND-COLLGN, ORAL) Take by mouth. 0 Active multivitamin tablet (2 sources) Start: 07-11-2014 take 1 tablet by mouth once daily multivitamin tablet Take 1 tablet by mouth once daily. 07/11/2014 Active Start: 07-11-2014 take 1 tablet by ramez th once daily multivitamin tablet Take 1 tablet by mouth once daily. 0 07/11/2014 Active Vliwsclucdoy-Ag-Gjrw-Mineral s (Multiple Vitamin, Womens) 1 EACH tablet (7 sources) Start: 07-14-2016 take 1 tablet by mouth once daily Qaaoqesnvdcd-Es-Mrch-Minerals (Multiple Vitamin, Womens) 1 EACH tablet Active 1 NMA PO DAILY July 14, 2016 12:00am Start: 07-14-2016 take 1 tablet by ramez th once daily Coqgmfegfbsf-Ic-Lgnb-Minerals (Multiple Vitamin, Womens) 1 EACH tablet Active 1 EACH PO DAILY July 13, 2016 11:00pm Start: 07-14-2016 take 1 tablet by ramez th once daily Kypdoqqzisuk-Bh-Oexw-Minerals (Multiple Vitamin, Womens) 1 EACH tablet Active 1 EACH PO DAILY July 14, 2016 12:00am phenazopyridine hydrochloride 200 mg oral tablet (2 sources) Start: 07-13-2023 take 1 tablet by mouth three times daily Phenazopyridine (Pyridium) 200 mg tablet Active 200 mg PO THREE TIMES A DAY July 13, 2023 12:00am sulfamethoxazole 800 mg / trimethoprim 160 mg oral tablet (2 sources) Dihydrofolate Reductase Inhibitor Antibacterial, Sulfonamide Antimicrobial Start: 07-13-2023 Sulfamethoxazole-Tri methoprim 800-160 mg tablet Active 1 {tbl} PO TWICE A DAY July 13, 2023 12:00am Start: 07-13-2023 take 1 tablet by ramez th twice daily Sulfamethoxazole-Trimethoprim Active 1 T ABLET PO TWICE A DAY July 13, 2023 12:00am Turmeric-Turmeric Root Extract (11 sources) Start: 07-14-2016 take 1 capsule by mouth once daily Turmeric-Turmeric Root Extract 500 MG capsule Active 500 mg PO DAILY July 14, 2016 12:00am Start: 07-14-2016 take 500 mg by mouth once daily Turmeric-Turmeric Root Extract Active 500 MG PO DAILY July 13, 2016 11:00pm Start: 07-14-2016 take 500 mg by mouth once daily Turmeric-Turmeric Root Extract Active 500 MG PO DAILY July 14, 2016 12:00am Turmeric 500 MG Oral Capsule Quantity: 0 Refills: 0 Ordered: 18-Oct-2022 DO Active turmeric root extract 500 mg capsule (2 sources) Start: 11-14-2017 take 1 capsule by mouth once daily turmeric root extract 500 mg capsule Take 500 mg by mouth once daily. 11/14/2017 Active Start: 11-14-2017 take 1 capsule by mo [facility] once daily turmeric root extract 500 mg capsule Take 500 mg by mouth once daily. 0 11/14/2017 Active vitamin b12 1 mg oral tablet (6 sources) Vitamin B12 cyanocobalamin ( Vitamin B-12) 1,000 mcg tablet Take by mouth. Active Vitamin B-12 100 0 MCG Oral Tablet Quantity: 0 Refills: 0 Ordered: 18-Oct-2022 DO Active Completed/Discontinued Medications Medication Drug Class(es) Dates Sig (Normalized) Sig (Original) Centrum Adults Oral Tablet (4 sources) Centrum Adults O ral Tablet Quantity: 0 Refills: 0 Ordered: 18-Oct-2022 DO Active 1 ml fentaNYL 0.05 mg/ml injection (1 source) Opioid Agonist Start: 12-13-2022 End: 12-13-2022 fentaNYL PF (Sublimaze) injection flavoring agent (GRAPEFRUIT MISC) (1 source) End: 03-27-2023 flavoring agent (GRAPEFRUIT MISC) Take by mouth. Grapefruit seed extract 0 03/27/2023 Discontinued (Entered in Error) Grapefruit Seed EXTR (4 sources) Grapefruit Seed EXTR Quantity: 0 Refills: 0 Ordered: 18-Oct-2022 DO Active 5 ml midazolam 1 mg/ml injection (1 source) Benzodiazepine Start: 12-13-2022 End: 12-13-2022 midazolam (Versed) injection Vitamin D3 CAPS (4 sources) Vitamin D3 CAPS Quantity: 0 Refills: 0 Ordered: 18-Oct-2022 DO Active Problems Active Problems Problem Classification Problem Date Documented Date Episodic/Chronic Cardiac dysrhythmias (7 sources) Paroxysmal supraventricular tachycardia; Translations: [Supraventricular tachycardia] 07-14-2016 Chronic Headache; including migraine (7 sources) Headache; Translations: [Headache] 07-15-2016 Episodic Nutritional deficiencies (7 sources) Vitamin D deficiency; Translations: [Vitamin D deficiency, unspecified] 07-14-2016 Chronic Osteoarthritis (7 sources) Osteoarthritis; Translations: [Unspecified osteoarthritis, unspecified site] 07-14-2016 Chronic Other connective tissue disease (5 sources) Other specified soft tissue disorders; Translations: [Swelling of clavicular region] 03-28-2023 Episodic Other connective tissue disease (1 source) Disorder of soft tissue; Translations: [Other specified soft tissue disorders] 12-13-2022 Episodic Other ear and sense organ disorders (2 sources) Bilateral sensory hearing loss; Translations: [Sensorineural hearing loss, bilateral] Onset: 07-05-2024 07-05-2024 Chronic Other ear and sense organ disorders (2 sources) Sensorineural hearing loss, bilateral; Translations: [Sensorineural hearing loss, bilateral] Onset: 07-05-2024 Chronic Other nervous system disorders (2 sources) H/O: encephalitis; Translations: [Personal history of infections of the central nervous system] Onset: 07-05-2024 07-05-2024 Episodic Other nervous system disorders (2 sources) Personal history of infections of the central nervous system; Translations: [Personal history of infections of the central nervous system] Onset: 07-05-2024 Episodic Other non-traumatic joint disorders (3 sources) Pain in right shoulder; Translations: [Shoulder pain, right] 12-13-2022 Episodic Other nutritional; endocrine; and metabolic disorders (7 sources) Obese class I; Translations: [Obesity, unspecified] 07-14-2016 Chronic Other skin disorders (5 sources) Finding of neck region; Translations: [Swelling, mass, or lump in head and neck] 12-13-2022 Episodic Other skin disorders (2 sources) Localized swelling, mass and lump, neck; Translations: [Localized swelling, mass and lump, neck] Onset: 11-20-2022 Episodic Unclassified (1 source) Unknown / UNK(Unknown) Onset: 11-25-2016 Unclassified (1 source) Cough, unspecified; Translations: [Cough, unspecified] Onset: 05-20-2024 Varicose veins of lower extremity (1 source) Varicose veins of bilateral lower extremities with pain; Translations: [Varicose veins of bilateral lower extremities with pain] Onset: 06-26-2017 Episodic Past or Other Problems Problem Classification Problem Date Documented Da te Episodic/Chronic Administrative/social admission (3 sources) Encounter for pre-employment examination; Translations: [Patient encounter status] Onset: 08-11-2023 08-11-2023 Episodic Unclassified (1 source) VARICOSE VEINS Onset: 11-25-2016 Unclassified (2 sources) Onset: 03-27-2023 Resolved: 07-05-2024 03-27-2023 Urinary tract infections (3 sources) Urinary tract infectious disease; Translations: [Urinary tract infection, site not specified] Onset: 07-17-2023 07-13-2023 Episodic Results Test Name Value Interpretation Reference Range Facility Chest PA and Lateralon 05-07 Chest PA and Lateral [facility] [address] [place] [id number] Chest PA and Lateral MR#: [id number] Acct: [id number] Name: MELY DEGROOT Rep #: [id number] : 1965 F 58 From: Torin Arias MD PCP: Dr. Angelina Ortez DO Status: REG CLI Study: Chest PA and Lateral Date of Exam: 05/07/24 Exam# [id number] Ordering Dr: Angelina Ortez DO PROCEDURE: CHEST PA AND LATERAL TECHNIQUE: Frontal and lateral views of the chest. COMPARISON: None. FINDINGS: Lungs: Lungs clear of pneumonia and congestion. Pleura: No pleural effusions, thickening, or pneumothorax. Heart: Normal in size and configuration. Mediastinum/Leyla: Unremarkable. Great vessels: Unremarkable. Bones/soft tissues: Unremarkable. RAD/Chest PA and Lateral IMPRESSION: No active cardiopulmonary disease. Reading Location: [place] [address] CC: Dr. Angelina Ortez DO Home Health Registered Nurse: Signed Normal [facility] Quantiferon TB-Gold+on 08-12 QFT MITOGEN CLIFFORD > 10.00 Normal . [facility] Comment on above: Performed By: #### L [id number] #### [facility] [address] [place], [place], [id number] QFT NIL VALUE 0 IU/mL Normal . [facility] Comment on above: Performed By: #### L [id number] #### [facility] [address] [place], [place], [id number] QFT TB GOLD+ Comment Normal . [facility] Comment on above: Result Comment: Hong tiFERON-TB Gold Plus is a qualitative indirect test for M tuberculosis infection (including disease) and is intended for use in conjunction with risk assessment, radiography, and other medical and diagnostic evaluations. The QuantiFERON-TB Gold Plus result is determined by subtracting the Nil value from either TB antigen (Ag) value. The Mitogen tube serves as a control for the test. Performed By: #### L [id number] #### [facility] [address] [place], [place], [id number] QFT TB POS CRIT Negative Normal Negative [facility] Comment on above: Result Comment: No r esponse to M tuberculosis antigens detected. Infection with M tuberculosis is unlikely, but high risk individuals should be considered for additional testing (ATS/IDSA/CDC Clinical Practice Guidelines, 2017). The reference range is an Antigen minus Nil result of <0.35 IU/mL. The specimen received for QuantiFERON testing was incubated by the ordering institution. Specific procedures outlined in our Directory of Services and in the package insert for the QuantiFERON Gold (In Tube) test must be followed to enable for proper stimulation of cells for the production of interferon gamma. Chemiluminescence immunoassay methodology Performed at: [facility] [id number] Metal Welder: Arjun Rosario PhD, Phone: [phone] Performed By: #### L [id number] #### [facility] [address] [place], [address] QFT TB1+ AG CLIFFORD 0 IU/mL Normal . [facility] Comment on above: Performed By: #### L [id number] #### [facility] [address] [place], [address] QFT TB2+ AG CLIFFORD 0.01 IU/mL Normal . [facility] Comment on above: Performed By: #### L [id number] #### [facility] [address] [place], [address] Internal Medicine Office Vis lianet 08-11-2023 Internal Medicine Office Visit [facility] [address] [place] [address] [address] [place], [place] [address] OFFICE VISIT Date of Service: 08/11/23 MR#: [id number] Acct: [id number] Name: MELY DEGROOT Rep #: [id number] : 1965 Provider: BRITT wright Age/Sex: 57/F Location[place] [facility] Status: Signed Intake Vital Signs 07/13/23 08:58 Height 5 ft 5 in Intake Visit Reasons: PRE EMP/NON DOT/PHYSICAL Allergies Beta-Blockers (Beta-Adrenergic Bloc Allergy (Verified 07/13/23 08:57) Rash bisoprolol Allergy (Verified 07/13/23 08:57) Rash clarithromycin (From Biaxin) Allergy (Verified 07/13/23 08:57) Rash latex Allergy (Verified 07/13/23 08:57) Unknown morphine Allergy (Verified 07/13/23 08:57) Angioedema tramadol Allergy (Verified 07/13/23 08:57) Hives caffeine Adverse Reaction (Verified 07/13/23 08:57) Unknown [facility] Social History Smoking Status: Never smoker HPI HPI Details: MELY DEGROOT, is a 57 F who presents to urgent care today for preemployment physical. 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 Please see corresponding documentation. She does have a history of paroxysmal supraventricular tachycardia that is well-controlled. No episodes in the past 3 years. ROS Const Constitutional: No anorexia (as noted in HPI) Office Procedures Physical Exam Coding PE Coding Pre-employment PE: Yes Coding Level of Care Code No Charge Diagnoses Pre-employment examination Z02.1 Assessment and Plan Assessment and Plan (1) Pre-employment examination: Status: Acute Orders: Orders Quantiferon TB-Gold+ Today Z02.1 - Encounter for pre-employment examination 08/11/23 1421 Date Suzette Candelarioignshelly Signature: Date (if applicable) CC: Normal [facility] Office Visit Reporton 2023 Office Visit Report [facility] [address] [place] [address] OFFICE VISIT Date of Service: 08/11/23 MR#: [id number] Acct: [id number] Patient: MELY DEGROOT Rep #: [id number] : 1965 Provider: BRITT wright Age/Sex: 57/F Location: [facility] Status: Signed Intake Vital Signs 07/13/23 08:58 Height 5 ft 5 in Weight: 165 lb 11.2 oz BMI 27.6 BP 197/79 H Respiration 18 Pulse 81 Temp 97.9 F Temp Source Temporal Pulse Oximetry (%) 100 Intake Visit Reasons: FIT TEST/QUANTIFERON Chief Complaint: fit test tb test Textile Engraver Required: No Accompanied by: Self Is patient in pain?: No Allergies Beta-Blockers (Beta-Adrenergic Bloc Allergy (Verified 08/11/23 16:42) Rash bisoprolol Allergy (Verified 08/11/23 16:42) Rash clarithromycin (From Biaxin) Allergy (Verified 08/11/23 16:42) Rash latex Allergy (Verified 08/11/23 16:42) Unknown morphine Allergy (Verified 08/11/23 16:42) Angioedema tramadol Allergy (Verified 08/11/23 16:42) Hives caffeine Adverse Reaction (Verified 08/11/23 16:42) Unknown Medications ???Medication ???Instructions ???Recorded ???Confirmed ???Type cholecalciferol (vitamin D3) 50 2,000 unit PO DAILY 07/14/16 08/11/23 History mcg (2,000 unit) capsule (Vitamin D3) hyalur ac-chond sul-colg II-AA 40 1 ea PO DAILY 07/14/16 08/11/23 History mg-80 mg-400 mg capsule (Hyaluronic Acid(with chondroitin-collagenII )) lrwcwgvtpste-Oi-sqto-m inerals 1 ea PO DAILY 07/14/16 08/11/23 History (Multiple Vitamin, Womens tablet) turmeric 450 mg-turmeric root 500 mg PO DAILY 07/14/16 08/11/23 History extract 50 mg capsule phenazopyridine 200 mg tablet 200 mg PO TID #10 tabs 07/13/23 08/11/23 Rx (Pyridium) sulfamethoxazole 800 1 tab PO BID #14 TABLETS 07/13/23 08/11/23 Rx mg-trimethoprim 160 mg tablet Office Procedures [facility] Billing Sheet Testing Respirator Clearance (form only): Yes Respirator Fit Testing: Yes Occquant-Quantiferon: Yes 08/12/23 1220 Date Suzette Conteh MECHANICAL ASSEMBLY TECHNICIAN-C Cosigner Signature: Date (if applicable) CC: Normal [facility] Urine Cultureon 07-15-2023 [facility] Escherichia coli Mayer Count >100,000 Escherichia coli: REACTION Ampicillin Islt DAMIAN >=32 R Ampicillin+Sulbac Islt DAMIAN 16 I ceFAZolin Islt DAMIAN <=4 S Cefepime Islt DAMIAN <=0.12 S cefTRIAXone Islt DAMIAN <=0.25 S Ciprofloxacin Islt DAMIAN >=4 R Ertapenem Islt DAMIAN <=0.12 S B-Lactamase Extended Susc Islt NEG Gentamicin Islt DAMIAN <=1 S Imipenem Islt DAMIAN <=0.25 S levoFLOXacin Islt DAMIAN >=8 R Nitrofurantoin Islt DAMIAN <=16 S Pip+Tazo Islt DAMIAN <=4 S Tobramycin Islt DAMIAN <=1 S TMP SMX Islt DAMIAN >=320 R Normal [facility] Comment on above: Performed By: #### M [id number] #### [facility] [address] [facility] [place], [address] Basophil percentageOrdered B y: Sabina Quintero on 07-13-2023 Basophil percentage 25-50 SEEN /hpf 0-5 [facility] Bilirubin Test strip Ql (U)O rdered By: Sabina Quintero on 07-13-2023 Bilirubin Ql (U) Negative Negative [facility] Emergency Department Summary on 07-13-2023 Emergency Department Summary [facility] Medical Records Department [address] [facility] [place] [address] Emergency Department Summary 07/13/23 MR#: [id number] Acct: [id number] Name: MELY DEGROOT Rep #: [id number] : 1965 57 From: Sabina Quintero DO PCP: Dr. Angelina Ortez, DO Status:DEP ER Location: ED HPI HPI - Female History of Present Illness Chief Complaint: Complaint Detail of Chief Complaint: Dysuria and frequency Informant: patient Narrative Narrative: Patient presents the emergency department complaint of dysuria and frequency that started this morning. Patient states she had a mild backache yesterday but she had been on vacation and was up taking pictures all day and has history of arthritis so she did not think much of it. Today she described feeling like she needed to urinate frequently but only get small amounts of urine out. She felt chilled last night but has not had a fever. She has had no vomiting. No prior history of kidney stones. She described a deep pain over her bladder earlier today. PFSH PFSH Home Medications cholecalciferol (vitamin D3) 50 mcg (2,000 unit) capsule (Vitamin D3) 2,000 unit PO DAILY 07/14/16 [History Last Taken Unknown] hyalur ac-chond sul-colg II-AA 40 mg-80 mg-400 mg capsule (Hyaluronic Acid(with chondroitin- collagenII)) 1 ea PO DAILY 07/14/16 [History Last Taken Unknown] cqrrnonxtrcx-St-wtbh-m inerals (Multiple Vitamin, Womens tablet) 1 ea PO DAILY 07/14/16 [History Last Taken Unknown] turmeric 450 mg-turmeric root extract 50 mg capsule 500 mg PO DAILY 07/14/16 [History Last Taken Unknown] phenazopyridine 200 mg tablet (Pyridium) 200 mg PO TID #10 tabs 07/13/23 [Rx Last Taken Unknown] sulfamethoxazole 800 mg-trimethoprim 160 mg tablet 1 tab PO BID #14 TABLETS 07/13/23 [Rx Last Taken Unknown] Allergy/AdvReac Type Severity Reaction Status Date / Time Beta-Blockers Allergy Rash Verified 07/13/23 08:57 (Beta-Adrenergic Bloc bisoprolol Allergy Rash Verified 07/13/23 08:57 clarithromycin [From Biaxin] Allergy Rash Verified 07/13/23 08:57 latex Allergy Unknown Verified 07/13/23 08:57 morphine Allergy Angioedema Verified 07/13/23 08:57 tramadol Allergy Hives Verified 07/13/23 08:57 caffeine AdvReac Unknown Verified 07/13/23 08:57 Social History Smoking Status: Never smoker ROS ROS ED Review of Systems ROS Unobtainable: other Constitutional Constitutional ED: Reports lethargy; Denies chills, fever(s), sweats or weight loss Eyes Eyes: Denies blurry vision, change in vision or diplopia ENT ENT ED: Denies rhinorrhea or sore throat Cardiovascular Cardiovascular: Denies chest pain, orthopnea or racing heartbeat Respiratory/Chest Respiratory/Chest: Denies cough, dyspnea, dyspnea on exertion, orthopnea or sputum Gastrointestinal Gastrointestinal: Denies abdominal pain, diarrhea, nausea or vomiting Genitourinary Genitourinary ED: Reports dysuria and urinary frequency; Denies hematuria Musculoskeletal Musculoskeletal: Denies arthralgias, back pain, myalgias or neck pain Integumentary Denies abscess, Abrasions or rash Neurologic Neurologic: Denies headache(s) or weakness Psychiatric Psychiatric: Denies anxiety, depression or suicidal thoughts Endocrine Endocrinology: Denies polydipsia, polyphagia or polyuria Hematologic/Lymphatic Hematologic/Lymphatic: Denies easy bleeding, easy bruising or lymphadenopathy Allergic/Immunologic Allergic/Immunologic ED: Denies mouth swelling, tongue swelling or urticaria EXAM Physical Exam Const Vital Signs: 07/13/23 08:58 Temperature 97.9 F Temperature Source Temporal Pulse Rate 81 Respiratory Rate 18 Blood Pressure 197/79 H Blood Pressure Mean 118 Pulse Ox 100 Oxygen Delivery Method Room Air Positive well nourished and well developed General Appearance ED: well developed and NAD HEENT Reports TM's clear and moist mucous membranes normocephalic and atraumatic; Negative for trauma or tenderness Tympanic Membrane ED: Yes TM's clear Eyes PERRL and EOMs intact bilaterally General Eye ED: Negative for pale conjunctiva or scleral icterus Neck no lymphadenopathy, supple and no JVD General: Negative for tenderness Chest Wall inspection of chest normal and palpation of chest normal Chest: Negative for tenderness Resp normal respiratory effort and clear to auscultation bilaterally Effort and Inspection: Negative for respiratory distress or pain with movement Auscultation: Negative for rhonchi, wheezes or diminished lung sounds Cardio regular rate, regular rhythm, S1 normal heart sound, S2 normal heart sound and no murmurs Peripheral Pulses: pulses 2+ throughout GI normal to inspection, nondistended, normoactive bowel sounds, soft to palpation, non-tender, non- distended and no masses Back/Spine no CVA tenderness and n (more content not included)... Normal [facility] Ketones Test strip Ql (U)Ord ered By: Sabina Quintero on 07-13-2023 Ketones Ql (U) Negative Negative [facility] Mucus LM Ql (Urine sed)Order ed By: Remus Ungur on 07-13-2023 Mucus Ql (Urine sed) 0 SEEN /hpf [facility] Nitrite Test strip Ql (U)Ord ered By: Remus Ungur on 07-13-2023 Nitrite Ql (U) Negative Negative [facility] No Panel InformationOrdered By: Remus Unghyun on 07-13-2023 Urine RBC 25-50 SEEN /hpf 0-5 [facility] Protein Test strip Ql (U)Ord ered By: Remus Ungur on 07-13-2023 Protein Ql (U) Negative Negative [facility] Squamous epithelial cells de tection in urine sediment by light microscopyOrdered By: Remus Unghyun on 07-13-2023 Epithelial cells.squamous LM Ql (Urine sed) 0 SEEN /hpf 5- [facility] Urinalysis, Completeon 07-12 BACTERIA 1+ /hpf Normal None Seen [facility] Comment on above: Order Comment: STEPHANIE SAMPSONOR TO SPECIFY Performed By: #### L [id number] #### [facility] [address] [place], [place], [address] RBC 25-50 SEEN Normal [address] [place] [address] Comment on above: Order Comment: STEPHANIE CTOR TO SPECIFY Performed By: #### L [id number] #### [facility] [address] [place], [address] WBC 25-50 SEEN Normal 0-5 [facility] Comment on above: Order Comment: STEPHANIE CTOR TO SPECIFY Performed By: #### L [id number] #### [facility] [address] [place], [address] EPI,SQUAMOUS 0 SEEN Normal 5-10 [facility] Comment on above: Order Comment: STEPHANIE CTOR TO SPECIFY Performed By: #### L [id number] #### [facility] [address] [place], [address] Mucus Ql (Urine sed) 0 SEEN Normal [facility] Comment on above: Order Comment: COLLE CTOR TO SPECIFY Performed By: #### L [id number] #### [facility] [place], [address] Urine blood detectionOrdered By: Remus Quintero on 07-13-2023 RBC Ql (U) 250 /ul Negative [facility] Urine clarityOrdered By: Rem us Leon on 07-13-2023 Clarity (U) Sl. Cloudy Clear [facility] Urine color determinationOrd ered By: Remus Quintero on 07-13-2023 Color (U) Yellow Yellow [facility] Urine glucose detectionOrder ed By: Remus Quintero on 07-13-2023 Glucose Ql (U) Normal mg/dl Normal [facility] Urine leukocyte esterase det ection by dipstickOrdered By: Sabina Quintero on 07-13-2023 Leukocyte esterase Test strip Ql (U) 500 /ul Negative [facility] Urine pHOrdered By: Sabina Rodriguez gur on 07-13-2023 pH (U) 7.0 [pH] 5.0 - 8.0 [facility] Urine sediment bacteria coun t by microscopy (number/high power field)Ordered By: Sabina Quintero on 07-13-2023 Bacteria LM.HPF (Urine sed) [#/Area] 1 /[HPF] None Seen [facility] Urine specific gravity measu rementOrdered By: Sabina Quintero on 07-13-2023 Specific gravity (U) [Rel density] 1.005 1.002-1.030 [facility] Urine urobilinogen measureme ntOrdered By: Sabina Quintero on 07-13-2023 Urobilinogen Ql (U) Normal mg/dl Normal [facility] Absolute lymphocyte countOrd ered By: Andrew Collins on 02-18-2023 Lymphocytes Auto (Unsp spec) [#/Vol] 1.42 10*3/uL 0.83-4.51 [facility] Basophil percentageOrdered B y: Andrew Collins on 02-18-2023 Basophils/100 WBC (Bld) 0.4 % 0-1 [facility] Eosinophils/100 WBC (Bld) 1.2 % 0-5 [facility] Neutrophils (Bld) [#/Vol] 3.6 10*3/uL 2.0-7.7 [facility] Neutrophils/100 WBC (Bld) 64.3 % 47-70 [facility] WBC (Bld) [#/Vol] 5.7 10*3/uL 4.4-11.0 [facility] Blood erythrocytes count (nu mber/volume)Ordered By: Andrew Collins on 02-18-2023 RBC (Bld) [#/Vol] 4.19 10*6/uL 4.2-5.4 [facility] Blood hemoglobin measurement (mass/volume)Ordered By: Andrew Collins on 02-18-2023 Hemoglobin (Bld) [Mass/Vol] 13.0 g/dL 12.0-15.0 [facility] Blood lymphocytes/100 leukoc ytesOrdered By: Andrew Collins on 02-18-2023 Lymphocytes/100 WBC (Bld) 25.1 % 19-41 [facility] Blood monocytes/100 leukocyt esOrdered By: Andrew Collins on 02-18-2023 Monocytes/100 WBC (Bld) 8.8 % 0-10 [facility] Blood platelet mean volumeOr dered By: Andrew Collins on 02-18-2023 Platelet mean volume (Bld) [Entitic vol] 10.7 fL 6.2-12.0 [facility] Determination of erythrocyte mean corpuscular volume (MCV)Ordered By: Andrew Collins on 02-18-2023 MCV (RBC) [Entitic vol] 94.3 fL 81-99 [facility] Erythrocyte sedimentation ra teOrdered By: Andrew Collins on 02-18-2023 ESR (Bld) [Velocity] 2 mm/h 0-30 [facility] Hematocrit Auto (Bld) [Volum e fraction]Ordered By: Andrew Collins on 02-18-2023 Hematocrit (Bld) [Volume fraction] 39.5 % 37-47 [facility] - Hematology and Cell countsOrdered By: Andrew Collins on 02-18-2023 Erythrocyte distribution width (RBC) [Entitic vol] 40.9 fL 35.1-43.9 [facility] Erythrocyte distribution width (RBC) [Ratio] 11.9 % 11.6-14.6 [facility] Immature granulocytes/100 WBC (Bld) 0.200 % 0.0-0.9 [facility] Comment on above: IG% - Immature Granu locytes (promyelocytes, myelocytes and metamyelocytes) > 1% indicates that a LEFT SHIFT is Present. MCH (RBC) [Entitic mass] 31.0 pg 27.0-32.0 [facility] Nucleated RBC/100 WBC (Bld) [Ratio] 0 % 0-5 [facility] MCHC Auto (RBC) [Mass/Vol]Or dered By: Andrew Collins on 02-18-2023 MCHC (RBC) [Mass/Vol] 32.9 g/dL 32-36 [facility] No Panel InformationOrdered By: Andrew Collins on 02-18-2023 Anti-Nuclear Antibody Screen Negative Negative [facility] Comment on above: Performed at: [address] Director: Arjun Rosario PhD, Phone: [phone] Platelets bldOrdered By: Damian Collins on 02-18-2023 Platelets (Bld) [#/Vol] 291 10*3/uL 150-450 [facility] Serum or plasma C reactive p rotein measurement (mass/volume)Ordered By: Andrew Collins on 02-18-2023 CRP [Mass/Vol] mg/L 0.0-3.0 [facility] Comment on above: C-Reactive Protein ( CRP) provides useful information for thediagnosis, therapy and monitoring of inflammatory processesand associated diseases. For the evaluation of Relative Riskfor Cardiovascular Disease, a High Sensitivity CRP (HSCRP)should be ordered. Serum or plasma uric acid me asurement (mass/volume)Ordered By: Andrew Collins on 02-18-2023 Urate [Mass/Vol] 4.1 mg/dL 2.6-6.0 [facility] Comment on above: The drugs N-Acetylcy steine and Metamizole may falsely depress this assay. Serum rheumatoid factor dete ctionOrdered By: Andrew Collins on 02-18-2023 Rheumatoid factor Ql (S) 12.0 IU/mL <15 [facility] Surgical pathology studyOrde red By: Chelsi Jansen on 12-21-2022 Laboratory comment Geovani (Report) a0gieXAcQIShc6bbAGVjwA FuZzEwMzNcZnRuYmpcdWMx EOygazKsIFpil6YhW7McWh AwMFxhbnNpXGRlZmxhbmcx CZVhUEE5twXnULUoESyjKI YoDCddPx4sgWWzgCzxPeSd NGUqd4yvefGREQbqRWRMCF y7r1yzVROdAcH6gRMxWMka P3gkcjHbsJAfZ8Lcm0IdRN w0nQ70CMCmtS7crCMuZXgy oiGeAoY3AKtiDKFuHeN9QD TfzTJgKXAzU1wiCOOoMVek STJmOKsuqEAvXUV2aOfgu2 D6mUPjeJVutHaiDdYhSwHi PkJYq2PeTKm8xYpoP3XuYW MiWvV5qZByQDSuWHinLNCx XZJwlhJ4dM77MLpavvS9sU Fem7Ieo38aw445aZ3snKEo YJG0OXPkGZRcjEDzKVPkNY M0YKZuiORqM7agNiZzjGLe B7ZlKmUpyIOdU1FkPwSksR AxH9HhPiFvvDSqMLXmkDR9 ZIrsc283UIB8OcMdMX9iJ7 Xye7Y7mI8trSWhTLPvxTHd GyGeARBrqb5jvAVlCRbtr9 WoAVF6zoO9eAXewMNnCFJt EH08Krocy7GgMrabTUR4JP JjnkVdi2Oqp9ubJoVzbjLj V7otA2FzULIyDRVvFHIuEf RzvqFdk8Bel5JnhNLzbXx5 n1kiRIYzEMDarKwki3acQC R8GLCxP4K1lRYck9bhPMns VTDtgNJ2rxG5LRtyWDDjnc E7oeB5GXtcRLRzaKR6lpC7 NPshGOZdJcR8qvM7PTqgYT PzWRS6ExIaPNIyq5Cxwdxt PbVhl3XopPVjKDlwT33qc9 02LOPdwkDgL9iguOGalvqe bFMerzrdUGatrgS7BFLjBC BsYWluXGYxXGZzMjBcbGFu ZzEwMzNcaGljaFxmMVxkYm BxKJXwVKzgR7qyKqEmRtWk DNJHtVL8xLScs8hdhhB1dF BiEW0gLSFjhLBwuwYwh8U3 NRG6jLNexX3lmYHnSJOeuG WbxzIlaz55nCXxsGA3CEVn CNNexBIjtQ9nABZyDKDFjI 5hbCBJbnRlcnByZXRhdGlv is9KgZUpxb6ojSRkI3HxuL lmaWVzIHRoYXQgdGhleSBo ZMMfYRFujnswj8AbIFDnuF WbH9VxFA5rKTShay46 [facility] Work Phone: Pathology report Cancer Narrative Surgical Pathology Case: [id number] Authorizing Provider: Isabela Butler MD Collected: 12/13/2022 1408 Ordering Location: [facility] Received: 12/16/2022 1846 Center Pathologist: Chelsi Jansen MD Specimen: SOFT TISSUE MASS BIOPSY, right sternoclavicular mass [facility] Work Phone: Pathology report final diagnosis Narrative g5muoTLoPAYdmKKyHSPvA9 sferDoHOZxvZDiE0Ntzkir AQxcNQ2wUD3iqNelwPXpeG NuXJMrTiTpm0wwl828rQFx b0hrBTNSHBlkFQZMTKe9sJ rlC95fd8X4PnsaD65laFId KWI9NRWeLJDepVAlDRDdVI A9BKBznHMlY1biXKRzDF6g rfypHMzfGBqeWEVoaFV0LD UvwHXgH8ZfAPQwKLgyFAUw omu6HaRbEf1xmDIqoZhcOR xwYXJkXHBsYWluXGZzMjIg MxbnqATor6Xedn5fJ7quih ffeLfgruLkLCSyq75aGAIg k7OolXhjjONpBG3cRFEeEK lzRO42zfZwBhSftHRil3Yi uQPfm1UtNU1dKHJ5mn27uN AkYWLgi1M0VFX7qPXdYXDe wp1yzCDgnX1rsPJnjQG5mT 4eNTFaOCBkiSfkgLCsO5mf fzrfgwizj7RmXG3whXPzNB BhciAtLSBUaGVyZSBpcyBu baMgvtoxTZ8dZRLtRhBlIB 1rw6NpKBNkTAjiILSylILf PighfOE6TdxdYUOlqYCmXD 1scXD2SBAqVQOfGRvpMG5o KEU2vIUmfxWpGP7tLONfuL AmkkUgy7YjiR6pKYhok8pc gyFbzvZ1vMhhPZZsq3ZitT 5uG15xiwKwZODyh93vc3r4 aCBjbGluaWNhbCBhbmQgcm WsaE2mb4slWeAuPKQ1bCHv yzBonfAzRTSaEFUfHl9kDS E9fyBpVMToVBOfpRObyToe gc8gUmVaRjkopVO4UD8jzA UnMEUxl41bcJEuxvNsMKFu QdByyItjxWVwbSb4HDpjup PwwrXuSG1giGSuxM== [facility] Work Phone: Pathology report gross observation Narrative a4xoxVUrWTAtoWCvKCYaR1 wjkyYfMATgyEPlN6Eikegn PQjcCO0bFK8uxEkzuAYuuZ AuEFGxYiAdy2yus073tICx n9oyFTBZKPigOIGPIBu0vK hlH98ao7D3ZuamQ78icFFg MPX2BITyHSIjdTYfOMQvXO R0LOBxkZGgH4hfJQRnRH0e ktklITraWJikXKBgqCC0WQ GptMRaP1AzRGYaJZimQZNg gmw3GuPjTu1vxGOvuMirQJ hqCtiapTcvl3PgvFWqOQwd SNWbJNPtQZgxSHBwW3XZMC GzZkm3HjnxDrIvNmJPMWEx VVecWESsONZENKSgHNb5Jh IwODczIiBMUlIgMTIzMDAw MOL4KoSlCI7sUGwvnUZeNQ skRzgoHHxnV448XOziFDNd E2TuK8MfTKilRZU3YODbDr ZyLXQsRB1AGjKkITE4MnL5 FqcnVHu3NOl5ID7WMoNmZA BwQjpkLQU0CYDiUFh6ULzl YR3BYPObIJV5INd0RyS4BB a0JZNjEV7pFYzmyCVoPFua j9YrByCkIVIhHBsmpuB5MV KlqwBnb5SwFVpepJagOIMc HfJdzFijhR1nVaZmDpXSCC IfhBQlHTVfrxDpw0EjSOxi gnsnmJBlVSntJKF7xIMbGY CkIDCsFRZcTF14H2DqjoSf TLQcnnLnmR5vhGz3DVtfjj VtYmVyLCBhcmUgbXVsdGlw vKUxDqLaW95vuwTeED3kPL Xqwnuyl26dzWT5dGAreOQl HLtkxrFrQAPxykpfgB6jNP 98EGavOE19MXtaPE3bDUAj UdHDmBVfz4RmD1swSP8zeD Hsy9ZnjEj3aBSaBZjzKHYi jO4pyD6jd07xOEPiv8KynX RlLlxwYXJccGFyZFxzYTMw CDIkbAHAq1WfMCFRK3M2KI MdxNZnNGO8VB7urCzvRTRc B6LzM8RmkyU4JPSmnl2= [facility] Work Phone: Pathology report relevant history Narrative g8rkwZMjJOBuc0ngSCPnzZ QaBeZxBcSyBoNbVpn4RUJd gmE9Dyq5ZUCyZGpllS8wLE PgXZneN5bzruSpeJVcK8Os a9NxVBl7lH2xkAvlpV4aLx BcZnMyMCBtYXNzXHBhciB9 [facility] Work Phone: [facility] Work Phone: US Guidance for biopsy of Me diastinumon 12-13-2022 Technically successf ul ultrasound-guided biopsy of a right sternoclavicular joint mass. Samples were sent to surgical pathology for further evaluation. I was present for the entirety of the procedure as detailed above. I personally reviewed the images/study and I agree with the findings as stated. This procedure was performed and study interpreted at [place], [place]. MACRO: None Signed by: Zhang Treviño 12/13/2022 4:34 PM Dictation workstation: [id number] [facility] Interpreted By: Zhang Treviño, STUDY: US GUIDED MEDIASTINUM PERCUTANEOUS BIOPSY; 12/13/2022 1:46 pm INDICATION: Signs/Symptoms: SC joint mass R22.1: Localized swelling, mass or lump of neck M79.89: Swelling of clavicular region M25.511: Shoulder pain, right. COMPARISON: None. ACCESSION NUMBER(S): [id number] ORDERING CLINICIAN: TRACEY AGUIRRE TECHNIQUE: INTERVENTIONALIST(S): Dr. Zhang Treviño (attending) Ana Cummings CONSENT: The patient was informed of the nature of the proposed procedure. The purposes, alternatives, risks, and benefits were explained and discussed. All questions were answered and consent was obtained. HISTORY: The history and physical exam pertinent to the procedure were reviewed and no updates were made. RADIATION EXPOSURE: None. SEDATION: Moderate conscious IV sedation services (supervision of administration, induction, and maintenance) were provided by the attending physician performing the procedure with intravenous fentanyl 50 mcg and Versed 1 mg for 15 minutes. The physician was assisted by an independent trained observer, an interventional radiology nurse, in the continuous monitoring of patient level of consciousness and physiologic status. MEDICATION/CONTRAST: No additional. TIME OUT: A time out was performed immediately prior to procedure start with the interventional team, correctly identifying the patient name, date of , medical record number, procedure, anatomy (including marking of site and side), patient position, procedure consent form, relevant laboratory and imaging test results, safety precautions, and procedure-specific equipment needs. BIOPSY TARGET: Right sternoclavicular mass. PROCEDURE: The patient was placed in supine position on the interventional CT scanner bed. Initial sonographic images were obtained at the level of the right sternoclavicular joint without IV contrast. Imaging findings are discussed below. A percutaneous anterior approach was chosen for biopsy. The skin site was marked, prepped, and draped in usual sterile fashion. Local anesthesia of the skin and deep tissues was administered with 1% lidocaine. Then, using a 14 gauge Temno cutting needle, a total of 3 core biopsy specimens were obtained. Initial Chiba needle aspiration was attempted, however no fluid was obtained. Obtained samples appeared adequate. The needles were removed and sterile dressing applied. The patient tolerated the procedure well without evidence of immediate complication. The patient was then monitored in the radiology recovery area for approximately 1 hour prior to discharge. FINDINGS: Initial axial noncontrast ultrasound images demonstrate a heterogeneous echogenicity mass adjacent to the right sternoclavicular joint. This lesion was targeted for biopsy as detailed above. Intraprocedural ultrasound images demonstrate percutaneous biopsy of this mass in progress. There is no significant postprocedural hematoma. [facility] Zhang Treviño MD - 12/13/2022 Interpreted By: Zhang Treviño, STUDY: US GUIDED MEDIASTINUM PERCUTANEOUS BIOPSY; 12/13/2022 1:46 pm INDICATION: Signs/Symptoms: SC joint mass R22.1: Localized swelling, mass or lump of neck M79.89: Swelling of clavicular region M25.511: Shoulder pain, right. COMPARISON: None. ACCESSION NUMBER(S): [id number] ORDERING CLINICIAN: TRACEY AGIURRE TECHNIQUE: INTERVENTIONALIST(S): Dr. Zhang Treviño (attending) Ana Cummings CONSENT: The patient was informed of the nature of the proposed procedure. The purposes, alternatives, risks, and benefits were explained and discussed. All questions were answered and consent was obtained. HISTORY: The history and physical exam pertinent to the procedure were reviewed and no updates were made. RADIATION EXPOSURE: None. SEDATION: Moderate conscious IV sedation services (supervision of administration, induction, and maintenance) were provided by the attending physician performing the procedure with intravenous fentanyl 50 mcg and Versed 1 mg for 15 minutes. The physician was assisted by an independent trained observer, an interventional radiology nurse, in the continuous monitoring of patient level of consciousness and physiologic status. MEDICATION/CONTRAST: No additional. TIME OUT: A time out was performed immediately prior to procedure start with the interventional team, correctly identifying the patient name, date of , medical record number, procedure, anatomy (including marking of site and side), patient position, procedure consent form, relevant laboratory and imaging test results, safety precautions, and procedure-specific equipment needs. BIOPSY TARGET: Right sternoclavicular mass. PROCEDURE: The patient was placed in supine position on the interventional CT scanner bed. Initial sonographic images were obtained at the level of the right sternoclavicular joint without IV contrast. Imaging findings are discussed below. A percutaneous anterior approach was chosen for biopsy. The skin site was marked, prepped, and draped in usual sterile fashion. Local anesthesia of the skin and deep tissues was administered with 1% lidocaine. Then, using a 14 gauge Temno cutting needle, a total of 3 core biopsy specimens were obtained. Initial Chiba needle aspiration was attempted, however no fluid was obtained. Obtained samples appeared adequate. The needles were removed and sterile dressing applied. The patient tolerated the procedure well without evidence of immediate complication. The patient was then monitored in the radiology recovery area for approximately 1 hour prior to discharge. FINDINGS: Initial axial noncontrast ultrasound images demonstrate a heterogeneous echogenicity mass adjacent to the right sternoclavicular joint. This lesion was targeted for biopsy as detailed above. Intraprocedural ultrasound images demonstrate percutaneous biopsy of this mass in progress. There is no significant postprocedural hematoma. IMPRESSION: Technically successful ultrasound-guided biopsy of a right sternoclavicular joint mass. Samples were sent to surgical pathology for further evaluation. I was present for the entirety of the procedure as detailed above. I personally reviewed the images/study and I agree with the findings as stated. This procedure was performed and study interpreted at [place], [place]. MACRO: None Signed by: Zhang Treviño 12/13/2022 4:34 PM Dictation workstation: [id number] [facility] Work Phone: Radiology Study observation (narrative) [facility] Work Phone: US Guidance for biopsy of Me diastinumOrdered By: Zhang Treviño on 12-13-2022 [facility] Work Phone: Initial Visit (Orthopaedic S urgery)on 11-21-2022 Initial Visit (Orthopaedic Surgery) Diagnoses/Problems Assessed Shoulder pain, right (719.41) (M25.511) Chief Complaint sternoclavicular mass x 4 months nki right handed History of Present Illness 56-year-old is seen with right shoulder pain and a mass involving the right sternoclavicular joint. She has seen several doctors including orthopedic surgeons and head and neck specialist for this. She has had various recommendations including cortisone injection or biopsy and excision or continued observation. She has been having increased pain. And sometimes has a choking type sensation. Her has a cancer history which took an extended amount of time to diagnose and she is also concerned about this. She typically is very active but she has been limited due to the pain. Past medical social family history and review of systems are reviewed and updated on the information sheet Pleasant in no acute distress. Both shoulders forward flex 180 degrees. There is intact forward flexion and internal/external rotation strength. There is no effusion or instability of either shoulder. Minimal acromioclavicular tenderness bilaterally and no particular bicep tenderness. There is tenderness on the right sternoclavicular joint and then there is prominence of the joint and there is a small palpable soft tissue mass. MRI of the sternoclavicular joint is personally reviewed and there are degenerative changes involving the sternoclavicular joint and there is a mass anterior to the joint. Radiology report raises question of possible slow flow vascular region such as hemangioma or ganglion. A detailed and lengthy discussion was done about her problems. 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 The definitive diagnosis of the soft tissue mass would involve biopsy/excision. She saw Dr. Aguirre yesterday who recommended further observation but did indicate if she wanted to proceed with biopsy/excision for a definitive tissue identification then this could also be performed. At this point the recommendation was made to proceed with excision/biopsy to provide a more definitive diagnosis. If this proves to be a ganglion cyst associated with degenerative change of sternoclavicular joint then future ultrasound-guided injection of the sternoclavicular joint could provide some symptomatic relief. Active Problems Problems Localized swelling, mass or lump of neck (784.2) (R22.1) Shoulder pain, right (719.41) (M25.511) Swelling of clavicular region (729.81) (M79.89) Allergies atenolol Recorded By: Mal Cerda; 10/18/2022 10:54:30 AM Biaxin Recorded By: Mal Cerda; 10/18/2022 10:54:30 AM bisoprolol Recorded By: Mal Cerda; 10/18/2022 10:54:30 AM Latex Exam Gloves MISC Recorded By: Mal Cerda; 10/18/2022 10:54:30 AM morphine Recorded By: Mal Cerda; 10/18/2022 10:54:30 AM NSAIDs Recorded By: Mal Cerda; 10/18/2022 10:54:30 AM tramadol Recorded By: Mal Cerda; 10/18/2022 10:54:30 AM Current Meds Medication NameInstruction Kavya Allergy 180 MG Oral Tablet Centrum Adults Oral Tablet Grapefruit Seed EXTR HYDROcodone-Acetaminop hen 5-325 MG Oral Tablet Turmeric 500 MG Oral Capsule Vitamin B-12 1000 MCG Oral Tablet Vitamin D3 CAPS Signatures Electronically signed by : Debi Melvin MD; Nov 21 2022 12:48PM EST (Author) Normal [facility]22 Initial Visit (Orthopaedic Surgery) Diagnoses/Problems Assessed Swelling of clavicular region (729.81) (M79.89) Shoulder pain, right (719.41) (M25.511) Orders Shoulder pain, right Sports Medicine Referral Evaluation and Treatment Evaluate AND Treat Status: Hold For - Scheduling Requested for: [id number] Patient Discussion/Summary We had a very lengthy discussion with the patient regarding options on how to proceed with the mass overlying her Right SC joint. Based on imaging characteristics, it appears to be a benign process and it is certainly reasonable to perform a repeat MRI in 3-4 months to determine if the mass has changed in size or characteristics. If the mass has changed in any alarming way, then we would proceed with biopsy of the mass. An alternative would be to proceed with a biopsy now if living with this mass is anxiety provoking and wants answers now. She was reassured that the mass appears benign. Rather than being concerned with the mass the patient is more concerned with vague pain that occurs across her chest as well as a choking sensation that she feels on a nightly basis. I discussed with her that this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 MULTI VEIN [id number] Performed at [facility] APPROVED BY: PETER HERNÁNDEZ MD EXAM TITLE: SURFACE SCLEROTHERAPY OF RESIDUAL SYMPTOMATIC VARICOSITIES LOWER EXTREMITY DATE: 07/17/2017 13:31 INTERTYPE OPERATOR: Peter Hernández M.D. CLINICAL INDICATION/HISTORY: The patient has residual symptomatic varicosities following correction of the patient's venous insufficiency. PROCEDURE: Informed consent was obtained from the patient. Patient was sterilely prepped. Utilizing diluted foamed Sotradecol selective sclerotherapy of the patient's residual symptomatic varicosities. Sclerotherapy sites were bandaged and compression stocking was applied. There were no apparent complications. The patient was given home-going instructions. FINDINGS: As above IMPRESSION: Technically successful surface sclerotherapy of the residual symptomatic varicosities in the leg. Normal [facility] CNOVon 06-26-2017 CNOV Office Visit (AGCARDVEIN) ----MELY DEGROOT ([id number]) 1965 [facility] Time Provider Department06/26/17 10:15 AM GALINA LANG During your visit today, we recorded the following information about you:Kim Brown RDMS, ESSIE 06/26/2017 10:33 AM SignedPatient is here today for follow up phlebectomy. Patient denies pain andswelling. Patient has tenderness while working. Patient healing well.Kim Brown RDMS, Roxana Lang MD 06/26/2017 10:49 AM Basim Degroot is a 51 year old female who presents in follow up after RLEAP by JESSICA on 06/09/17The pt is doing well post surgery.They are following post op instructions.The incisions are healing well.She has no complaints and says she feels better after this on than the LLE.She still has some mildly painful areas but they are not concerning her. Thereare areas of thrombosed varicosities that will resolve.She asked about sclerotherapy and we discussed it, the R/B/A, details ofprocedure, and risks. Pricing and post op information sheets were given to thept.MEDICATIONS:Curr ent Outpatient Prescriptions:multivit valentin tablet Take 1 tablet by mouth once daily. Disp: Rfl: 0Omega-3 Fatty Acids (FISH OIL) 500 mg cap Take by mouth once daily. Disp:Rfl: 0Cholecalciferol, Vitamin D3, 2,000 unit cap Take 1 tablet by mouth once daily.Disp: Rfl: 0flecainide (TAMBOCOR) 100 mg tablet Take 1 tablet by mouth twice daily. Disp:Rfl: 0No current facility-administered medications for this visit.ALLERGIESAllerge n Reactions- Beta Blockers [Beta* Rash- Biaxin [Clarithromy* Unknown- Latex Rash- Morphine Anaphylaxis- Tramadol HivesThere were no vitals taken for this visit.ASSESSMENT:S/p RLE A/PPLAN:Doing wellPt will follow up for questions, recurrence, or if she would like to proceedwith sclerotherapy.FOLLOW UP:Return if symptoms worsen or fail to improve, for varicose veins.Galina Lang, MDReferring Provider: SELF [200]Allergies As of Date: 06/26/2017 Noted Allergy ReactionBETA BLOCKERS (BETA-BLOCKERS (BET*07/11/2014 2 - RashBIAXIN (CLARITHROMYCIN) 05/22/2016 16 - UnknownLATEX 07/11/2014 2 - RashMORPHINE 07/11/2014 10 - AnaphylaxisTRAMADOL 07/11/2014 4 - HivesDate Reviewed: 06/26/2017Reviewed by: Galina Lang - Fully AssessedReason for Visit: Varicose Veins Post Op [956]Primary Visit Diagnosis:Varicose veins of both lower extremities with pain [I83.813]Prescriptions as of 06/26/2017 Sig: MULTIVITAMIN TABLET Take 1 tablet by mouth once d* OMEGA-3 FATTY ACIDS 500 MG CA* Take by mouth once daily. CHOLECALCIFEROL (VITAMIN D3) * Take 1 tablet by mouth once d* FLECAINIDE 100 MG TABLET Take 1 tablet by mouth twice *Problem List As Of Date 06/26/2017 Noted Resolved Paroxysmal tachycardia (HCC) [I47.9] INVALID FOR* Varicose veins of leg with pain [I83.819]Visit Notes:>> Kim Brown Leydi Jun 26, 2017 10:31 AM Status: SignedPatient is here today for follow up phlebectomy. Patient denies pain andswelling. Patient has tenderness while working. Patient healing well.Kim Brown, RDMS, RVTDisposition: Return if symptoms worsen or fail to improve, for varicose veins.Follow-up and Disposition History RecordedEncounter Number: [id number] Status:Closed by GALINA LANG MD on 06/26/17 [facility] PROGRESSon 06-26-2017 PROGRESS HNO ID: [id number]: Galina Malloyervice: (none)Author Type: PhysicianType: Progress NotesFiled: 06/26/2017 10:49 AMNote Text:Mely Degroot is a 51 year old female who presents in follow up afterRLE AP by DJW on 06/09/17The pt is doing well post surgery.They are following post op instructions.The incisions are healing well.She has no complaints and says she feels better after this on than theLLE. She still has some mildly painful areas but they are not concerningher. There are areas of thrombosed varicosities that will resolve.She asked about sclerotherapy and we discussed it, the R/B/A, details ofprocedure, and risks. Pricing and post op information sheets were givento the pt.MEDICATIONS:Current Outpatient Prescriptions:multivit valentin tablet Take 1 tablet by mouth once daily. Disp: Rfl: 0Omega-3 Fatty Acids (FISH OIL) 500 mg cap Take by mouth once daily. Disp: Rfl: 0Cholecalciferol, Vitamin D3, 2,000 unit cap Take 1 tablet by mouth oncedaily. Disp: Rfl: 0flecainide (TAMBOCOR) 100 mg tablet Take 1 tablet by mouth twice daily.Disp: Rfl: 0No current facility-administered medications for this visit.ALLERGIESAllerge n Reactions- Beta Blockers [Beta* Rash- Biaxin [Clarithromy* Unknown- Latex Rash- Morphine Anaphylaxis- Tramadol HivesThere were no vitals taken for this visit.ASSESSMENT:S/p RLE A/PPLAN:Doing wellPt will follow up for questions, recurrence, or if she would like toproceed with sclerotherapy.FOLLOW UP:Return if symptoms worsen or fail to improve, for varicose veins.Galina Lang MD Normal [facility] STAB PHLEBECTOMY VVon 2017 STAB PHLEBECTOMY VV Performed at [facility] APPROVED BY: PETER HERNÁNDEZ MD EXAM TITLE: RIGHT LEG PHLEBECTOMY UTILIZING 7 STAB INCISIONS DATE:06/09/2017 09:51 CLINICAL INDICATION/HISTORY: Painful varicosities of the posterior aspect of the knee and medial aspect of the calf TECHNIQUE: All elements of maximal barrier technique including cap and mask, sterile gown, sterile gloves, a large sterile drape, hand hygiene and appropriate prep agent for cutaneous antisepsis were utilized and maintained during the procedure. The patient had been marked in the upright position and over the area of the vein 76 small stab incisions were made posteriorly medially in the popliteal area and calf. Through these stab incisions phlebectomy was performed between each of these with a stab phlebectomy a avulsion technique. Pressure was applied after the veins were removed and skin exit site pressure held until there was no significant bleeding. Once this was accomplished a sterile dressing was applied and then a pressure dressing applied over this. Patient tolerated the procedure well and was returned to the waiting area. FINDINGS:As above IMPRESSION:Successful phlebectomy right lower extremity utilizing 7 stab incisions [facility] Marcio 06-03-2017 [facility] Telephone (MARLO) ----MELY DEGROOT ([id number]) 1965 FDate Time Provider Department06/03/17 PETER HERNÁNDEZ During your visit today, we recorded the following information about you:Bertha Grimaldo 06/03/2017 9:36 AM SignedApril 2017 9:[address] JESSICA Boone can take the Hydrocodone from her knee surgery. Can callin Lorazepam and Ibuprofen to the [facility]. per .Bertha Grimaldo 06/03/2017 11:05 AM SignedApril 2017 11:03 AMIbuprofen 600 mg 3 times a day with food begin after procedure. No refills.Lorazepam 1 mg take 1 hour prior to procedure no refills.Bertha Colindres As of Date: 06/03/2017 Noted Allergy ReactionBETA BLOCKERS (BETA-BLOCKERS (BET*07/11/2014 2 - RashBIAXIN (CLARITHROMYCIN) 05/22/2016 16 - UnknownLATEX 07/11/2014 2 - RashMORPHINE 07/11/2014 10 - AnaphylaxisTRAMADOL 07/11/2014 4 - HivesDate Reviewed: 03/13/2017Reviewed by: Linh Sims - Fully AssessedReason for Visit: Medication Request [138]Prescriptions as of 06/03/2017 Sig: FLECAINIDE 100 MG TABLET Take 1 tablet by mouth twice * MULTIVITAMIN TABLET Take 1 tablet by mouth once d* OMEGA-3 FATTY ACIDS 500 MG CA* Take by mouth once daily. CHOLECALCIFEROL (VITAMIN D3) * Take 1 tablet by mouth once d*Problem List As Of Date 06/03/2017 Noted Resolved Paroxysmal tachycardia (HCC) [I47.9] INVALID FOR* Varicose veins of leg with pain [I83.819] Status:Closed by BERTHA GRIMALDO on 06/03/17 [facility] CNOVon 03-13-2017 CNOV Office Visit (MARLO) ----MELY DEGROOT ([id number]) 1965 FDate Time Provider Department03/13/17 3:15 PM LINH SIMS During your visit today, we recorded the following information about you:Kim Brown RDMS, RVT 03/13/2017 3:34 PM SignedPatient is here today for a two week follow up left phlebectomy. Patient hastender areas with no swelling. Patient continues to wear compression stockings.Patient healing well.Kim Brown RDMS, RVTLoren Rosa Sims MD 03/13/2017 4:11 PM SignedPOST PROCEDURAL FOLLOW UP REFLECTIONS JOY EVALUATION (This was a 15 minuteoffice visit)03/13/2017[facility] Care Physician:PARADISE MoreauLINICAL INDICATION/HISTORY: The patient is a 51 year old female with a historyof painful varicosities in B LE. Her L LE was her more symptomatic side, andthis was treated with phlebectomy on 03/01/17. She presents today for followand to discuss future procedures.FOCUSED PHYSICAL EXAM:Varicose Veins: YesReticular veins/venulectasias/sp ider veins: YesSwelling: YesHyperpigmentation: NoStasis dermatitis: NoUlceration: NoRESULTS OF ULTRASOUND: NoneIMPRESSION: Ms. Degroot has painful varicosities in B LE, s/p L LE ambulatoryphlebectomy. She will be scheduled [facility].RECOMME NDATION: L LE phlebectomyLoren SHONA Mosseferrsoha Provider: SELF [200]Allergies As of Date: 03/13/2017 Noted Allergy ReactionBETA BLOCKERS (BETA-BLOCKERS (BET*07/11/2014 2 - RashBIAXIN (CLARITHROMYCIN) 05/22/2016 16 - UnknownLATEX 07/11/2014 2 - RashMORPHINE 07/11/2014 10 - AnaphylaxisTRAMADOL 07/11/2014 4 - HivesDate Reviewed: 03/13/2017Reviewed by: Linh Sims - Fully AssessedReason for Visit: Varicose Veins Post Op [956]Primary Visit Diagnosis:Varicose veins of both lower extremities with pain [I83.813]Order(s):Emery zepam (ATIVAN) 1 mg tabletTake 1 tablet by mouth one time only for 1 dose. Take 1 hour prior to procedureDisp: 1 tabletRfl: 0 HYDROcodone-acetaminop hen (NORCO) 5-325 mg per tabletTake 1 tablet by mouth one time only for 1 dose. Take one hour prior to procedureDisp: 1 tabletRfl: 0 AG RADIOLOGY VISIT NOTE [[id number]] Order #: [id number]. #:[id number] RADPrescriptions as of 03/13/2017 Sig: IBUPROFEN 600 MG TABLET Take 1 tablet by mouth three * MULTIVITAMIN TABLET Take 1 tablet by mouth once d* OMEGA-3 FATTY ACIDS 500 MG CA* Take by mouth once daily. CHOLECALCIFEROL (VITAMIN D3) * Take 1 tablet by mouth once d* LORAZEPAM 1 MG TABLET Take 1 tablet by mouth one ti* HYDROCODONE 5 MG-ACETAMINOPHE* Take 1 tablet by mouth one ti* FLECAINIDE 100 MG TABLET Take 1 tablet by mouth twice *Problem List As Of Date 03/13/2017 Noted Resolved Paroxysmal tachycardia (HCC) [I47.9] INVALID FOR* Varicose veins of leg with pain [I83.819]Visit Notes:>> Kim Brown [facility] Mar 13, 2017 3:32 PM Status: SignedPatient is here today for a two week follow up left phlebectomy. Patienthas tender areas with no swelling. Patient continues to wear compressionstockings. Patient healing well.Kim Brown, CALVIN, RVTPrescriptions ordered this encounter Disp Refills Start End LORAZEPAM 1 MG TABLET 1 ta* 0 03/13/2017 03/13/2017 Class: Print RX Route: ORAL Sig: Take 1 tablet by mouth one time only for 1 dose. Take 1 hour prior to procedure HYDROCODONE 5 MG-ACETAMINOPHEN 325 M* 1 ta* 0 03/13/2017 03/13/2017 Class: Print RX Route: ORAL Sig: Take 1 tablet by mouth one time only for 1 dose. Take one hour prior to procedureLevel of Service: EST PATIENT VISIT LEVEL 2 [18888]Disposition: Return for Varicose Veins.Follow-up and Disposition History RecordedEncounter Number: [id number] Status:Closed by LINH SIMS MD on 03/13/17 [facility] PROGRESSon 03-13-2017 PROGRESS HNO ID: [id number]: Linh SimsService: (none)Author Type: PhysicianType: Progress NotesFiled: 03/13/2017 4:11 PMNote Text:POST PROCEDURAL FOLLOW UP REFLECTIONS JOY EVALUATION (This was a 15 minuteoffice visit)03/13/2017Primary Care Physician:Angelina Ortez, DOCLINICAL INDICATION/HISTORY: The patient is a 51 year old female with ahistory of painful varicosities in B LE. Her L LE was her more symptomaticside, and this was treated with phlebectomy on 03/01/17. She presentstoday for follow and to discuss future procedures.FOCUSED PHYSICAL EXAM:Varicose Veins: YesReticular veins/venulectasias/sp ider veins: YesSwelling: YesHyperpigmentation: NoStasis dermatitis: NoUlceration: NoRESULTS OF ULTRASOUND: NoneIMPRESSION: Ms. Degroot has painful varicosities in B LE, s/p L LEambulatory phlebectomy. She will be scheduled for her left LE phlebectomyat her convenience.RECOMMENDA TION: L LE phlebectomyLinh Sims MD [facility] PROGRESSon 03-01-2017 PROGRESS HNO ID: [id number]: Peter HernándezService: (none)Author Type: PhysicianType: Progress NotesFiled: 03/01/2017 1:59 PMNote Text:[facility] INTERVENTIONALPOST PROCEDURE NOTEDATE: 03/01/17NAME: Mely CarlinoMRN: [id number] ID: * No surgery found *Pre-Procedure Diagnosis: Symptomatic varicosities left lower extremityPost Procedure Diagnosis: Same.Board Certified Behavioral Analyst: Dr. Peter Hernández (Primary)Procedure: Other (specify) - left leg phlebectomy utilizing greater than20 stab incisionsAnesthesia: Tumescent localFindings: Successful phlebectomy of multiple varicosities of the leftlower extremity thigh and calfEstimated Blood Loss: Minimal (Less Than 25 mL).Specimen: None.Complications: None.Full report with procedural details to follow and will become availableunder Imaging Reports. Please contact for any questions or concerns.Peter Hernández MDVascular SurgeryBeeper [phone] [facility] CNOVon 02-27-2017 CNOV Office Visit (MARLO) ----MELY DEGROOT ([id number]) 1965 FDate Time Provider Jhqealuejn31/28/17 1:00 PM PETER HERNÁNDEZ [facility] During your visit today, we recorded the following information about you:Peter Hernández MD 03/01/2017 1:59 PM [facility] INTERVENTIONALPOST PROCEDURE NOTEDATE: 03/01/17NAME: Mely CarlinoMRN: [id number] ID: * No surgery found *Pre-Procedure Diagnosis: Symptomatic varicosities left lower extremityPost Procedure Diagnosis: Same.Board Certified Behavioral Analyst: Dr. Peter Hernández (Primary)Procedure: Other (specify) - left leg phlebectomy utilizing greater than 20stab incisionsAnesthesia: Tumescent localFindings: Successful phlebectomy of multiple varicosities of the left lowerextremity thigh and calfEstimated Blood Loss: Minimal (Less Than 25 mL).Specimen: None.Complications: None.Full report with procedural details to follow and will become available underImaging Reports. Please contact for any questions or concerns.Peter Hernández MDVascular SurgeryBeeper [phone] Provider: SELF [200]Allergies As of Date: 02/27/2017 Noted Allergy ReactionBETA BLOCKERS (BETA-BLOCKERS (BET*07/11/2014 2 - RashBIAXIN (CLARITHROMYCIN) 05/22/2016 16 - UnknownLATEX 07/11/2014 2 - RashMORPHINE 07/11/2014 10 - AnaphylaxisTRAMADOL 07/11/2014 4 - HivesDate Reviewed: 12/04/2016Reviewed by: Peter Hernández - Fully AssessedPrimary Visit Diagnosis:Varicose veins of both lower extremities with pain [I83.813]Order(s):[EXP IRED] lidocaine 500 mg, EPINEPHrine 0.5 mg, sodium bicarbonate 50 mEq in NaCl 0.9% 500 mL solution (TUMESCENT)Disp: Rfl:Prescriptions as of 02/27/2017 Sig: LORAZEPAM 1 MG TABLET Take 1 tablet by mouth one ti* IBUPROFEN 600 MG TABLET Take 1 tablet by mouth three * FLECAINIDE 100 MG TABLET Take 1 tablet by mouth twice * MULTIVITAMIN TABLET Take 1 tablet by mouth once d* OMEGA-3 FATTY ACIDS 500 MG CA* Take by mouth once daily. CHOLECALCIFEROL (VITAMIN D3) * Take 1 tablet by mouth once d*Problem List As Of Date 02/27/2017 Noted Resolved Paroxysmal tachycardia (HCC) [I47.9] INVALID FOR* Varicose veins of leg with pain [I83.819]Prescriptions ordered this encounter Disp Refills Start End LIDOCAINE 2%-EPINEPHRINE 1 MG/ML-SOD* 02/27/2017 02/27/2017 Route: SUBCUTANEOUSDispositio n: Return in about 3 weeks (around 03/20/2017) for varicose veins.Follow-up and Disposition History RecordedLetter TextEncounter Number: [id number] Status:Closed by PETER HERNÁNDEZ MD on 03/01/17 Normal [facility] STAB PHLECTOMY VV 20 + INCN [id number] 02-27-2017 STAB PHLECTOMY VV 20 + INCN [id number] Performed at [facility] APPROVED BY: PETER HERNÁNDEZ MD EXAM TITLE: LEFT LOWER EXTREMITY PHLEBECTOMY OF ANTEROLATERAL THIGH VARICOSITIES AND MEDIAL CALF VARICOSITIES LEFT LEG UTILIZING GREATER THAN 20 STAB INCISIONS DATE:02/27/2017 15:44 CLINICAL INDICATION/HISTORY: Significantly symptomatic varicosities of the left lower extremity TECHNIQUE: All elements of maximal barrier technique including cap and mask, sterile gown, sterile gloves, a large sterile drape, hand hygiene and appropriate prep agent for cutaneous antisepsis were utilized and maintained during the procedure. A series of stepwise incisions was made with a blood drawing needle over the varicose veins after tumescent anesthesia had been performed. The veins had been previously marked during the preoperative phase of the procedure and each of these areas was treated in a similar fashion. This incision was made with a blood drawing needle and then the veins were removed and a avulsion phlebectomy technique using vein hooks an hemostats. Over 20 incisions were used to completely perform the phlebectomy of the thigh and calf varicosities. Upon completion Steri-Strips were applied and then pressure dressings were applied and compression was applied over this. The patient was returned to the waiting area in stable condition. FINDINGS:As above IMPRESSION:Successful phlebectomy of left lower extremity utilizing over 20 stab incisions [facility] OBSOLETEon 02-25-2017 OBSOLETE Refill (AGCARDVEIN) ----MELY DEGROOT ([id number]) 1965 FDate Time Provider Rugjoyqzrt06/26/17 PETER HERNÁNDEZ During your visit today, we recorded the following information about you:Parul Amador 02/25/2017 2:56 PM AddendumDecembshelly 2016 2:54 PMPlease sign scripts for procedure on 02/27/17.Thank you,Parul AmadorOsiel 2016 2:58 PMChristine called and she does not want to take Hydrocodone and Lorazepamtogether because of the effects of the two if taken together. She read all ofthe side effects and she does not like what it says it can do to her. She willbring the Lorazepam with her and she will take the Hydrocodone. If Dr. Ayoub her take it she will have it with her.Bertha Colindres As of Date: 02/25/2017 Noted Allergy ReactionBETA BLOCKERS (BETA-BLOCKERS (BET*07/11/2014 2 - RashBIAXIN (CLARITHROMYCIN) 05/22/2016 16 - UnknownLATEX 07/11/2014 2 - RashMORPHINE 07/11/2014 10 - AnaphylaxisTRAMADOL 07/11/2014 4 - HivesDate Reviewed: 12/04/2016Reviewed by: Peter Hrenández - Fully AssessedReason for Visit: Refill Request [94]Primary Visit Diagnosis:Anxiety [F41.9] Other Visit Diagnosis:Post-operati ve pain [G89.18]Order(s):[STAR T ON 02/27/2017] LORazepam (ATIVAN) 1 mg tabletTake 1 tablet by mouth one time only for 1 dose. Take one hour prior to procedure.Disp: 1 tabletRfl: 0 [START ON 02/27/2017] ibuprofen (MOTRIN) 600 mg tabletTake 1 tablet by mouth three times daily as needed for Pain for up to 14 days.Disp: 42 tabletRfl: 0Prescriptions as of 02/25/2017 Sig: LORAZEPAM 1 MG TABLET Take 1 tablet by mouth one ti* IBUPROFEN 600 MG TABLET Take 1 tablet by mouth three * FLECAINIDE 100 MG TABLET Take 1 tablet by mouth twice * MULTIVITAMIN TABLET Take 1 tablet by mouth once d* OMEGA-3 FATTY ACIDS 500 MG CA* Take by mouth once daily. CHOLECALCIFEROL (VITAMIN D3) * Take 1 tablet by mouth once d*Problem List As Of Date 02/25/2017 Noted Resolved Paroxysmal tachycardia (HCC) [I47.9] INVALID FOR* Varicose veins of leg with pain [I83.819]Prescriptions ordered this encounter Disp Refills Start End LORAZEPAM 1 MG TABLET 1 ta* 0 02/27/2017 02/27/2017 Class: Print RX Route: ORAL Sig: Take 1 tablet by mouth one time only for 1 dose. Take one hour prior to procedure. IBUPROFEN 600 MG TABLET 42 t* 0 02/27/2017 03/13/2017 Class: Print RX Route: ORAL Sig: Take 1 tablet by mouth three times daily as needed for Pain for up to 14 days. Status:Closed by BERTHA GRIMALDO on 02/26/17 [facility] OBSOLETEon 02-19-2017 OBSOLETE Refill (AGCARDVEIN) ----MELY DEGROOT ([id number]) 1965 [facility] Time Provider Hbmaahbats37/20/17 PETER HERNÁNDEZ During your visit today, we recorded the following information about you:Parul Amador 02/19/2017 1:40 PM SignedDecembshelly 2016 1:39 PMPlease sign scripts for upcoming procedure on 02/27/17.Thank you,Parul Hernández MD 02/25/2017 1:12 PM SignedThese cannot be filled the way they were sent despite multiple attmept s.Please resend. Also no hydrocodone D/T allegy allertAllergies As of Date: 02/19/2017 Noted Allergy ReactionBETA BLOCKERS (BETA-BLOCKERS (BET*07/11/2014 2 - RashBIAXIN (CLARITHROMYCIN) 05/22/2016 16 - UnknownLATEX 07/11/2014 2 - RashMORPHINE 07/11/2014 10 - AnaphylaxisTRAMADOL 07/11/2014 4 - HivesDate Reviewed: 12/04/2016Reviewed by: Peter Hernández - Fully AssessedReason for Visit: Refill Request [94]Prescriptions as of 02/19/2017 Sig: FLECAINIDE 100 MG TABLET Take 1 tablet by mouth twice * MULTIVITAMIN TABLET Take 1 tablet by mouth once d* OMEGA-3 FATTY ACIDS 500 MG CA* Take by mouth once daily. CHOLECALCIFEROL (VITAMIN D3) * Take 1 tablet by mouth once d*Problem List As Of Date 02/19/2017 Noted Resolved Paroxysmal tachycardia (HCC) [I47.9] INVALID FOR* Varicose veins of leg with pain [I83.819] Status:Closed by PARUL AMADOR on 02/25/17 [facility] CNOVon 12-04-2016 OV Office Visit (MARLO) ----MELY DEGROOT ([id number]) 1965 FDate Time Provider Wompgnxuhl31/4/17 9:30 AM PETER HERNÁNDEZ During your visit today, we recorded the following information about you: Weight Height 88 kg 1.651 Chevy Hernández MD 12/04/2016 10:16 AM SignedThis patient is seen back today in follow-up of her significant varicosities ofthe lower extremities bilaterally. 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 Shehas especially had some problems with some skin abrasions and blisteringsecondary to the stockings. She said this was especially bad in the hotweather. At this point in time I think the patient is a good candidate forphlebectomy. She really does not have any venous insufficiency leading to thevaricose veins that would be treated with any type of ablation prior tophlebectomy. She also has some very superficial varicosities over the anteriorshin that may require a combination of phlebectomy and sclerotherapy to treat.At this point in time I go through discussion of the risks and benefits ofphlebectomy with the patient and she wishes to proceed. We're going to work ongetting the patient scheduled for phlebectomy of her symptomatic varicositiesfirst on the left leg as that is the more symptomatic leg and then on theright. Patient is satisfied with this plan and is going to follow-up with uswhen she comes in at the time of her phlebectomy. I spent 15 minutes in thevisit, with more than 50% of the total wxzz-fs-shag time of the visit incounseling / coordination of care.Referring Provider: SELF [200]Allergies As of Date: 12/04/2016 Noted Allergy ReactionBETA BLOCKERS (BETA-BLOCKERS (BET*07/11/2014 2 - RashBIAXIN (CLARITHROMYCIN) 05/22/2016 16 - UnknownLATEX 07/11/2014 2 - RashMORPHINE 07/11/2014 10 - AnaphylaxisTRAMADOL 07/11/2014 4 - HivesDate Reviewed: 12/04/2016Reviewed by: Peter Hernández - Fully AssessedPrimary Visit Diagnosis:Varicose veins of leg with pain, bilateral [I83.813]Order(s):COMP RESSION STOCKINGS [[id number]] Order #: [id number] s as of 12/04/2016 Sig: MULTIVITAMIN TABLET Take 1 tablet by mouth once d* OMEGA-3 FATTY ACIDS 500 MG CA* Take by mouth once daily. CHOLECALCIFEROL (VITAMIN D3) * Take 1 tablet by mouth once d* FLECAINIDE 100 MG TABLET Take 1 tablet by mouth twice *Problem List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
[2024-11-14 03:52] VITALS: BP 169/77; PULSE 71; RESP 16; O2SAT 100
[2024-11-14] MEDS: 0.9% Normal Saline (1000mL) 1,000 ML 1000 ML IV (04:21)
[2024-11-14 04:32] VITALS: BP 172/75; PULSE 66; RESP 16; O2SAT 100
[2024-11-14 04:51] LABS: Free T3 3.2 pg/mL (2.18-3.98)
[2024-11-14 04:53] LABS: Troponin T High Sens 2 HR 9 ng/L (<=14)
[2024-11-14 05:12] VITALS: BP 177/78; PULSE 71; RESP 16; TEMP 36.7; O2SAT 100
== END 2024-11-14 05:17 | disposition home or self-care (01) ==
PROVIDERS: Emergency Provider Student in an Organized Health Care Education/Training Program; PCP Family Medicine; Visit Provider Student in an Organized Health Care Education/Training Program
DX: R00.2 Palpitations (principal); I10 Essential (primary) hypertension
CPT/HCPCS: 71045; 80048; 83735; 84439; 84443; 84481; 84484; 85025; 93005; 96360; 99285; A4216

== ENCOUNTER → 2024-11-22 | Outpatient (CLI) | payer BC, SELFPAY ==
[2024-11-22 13:11] LABS: Anion Gap 10 (5-15); BUN 8 mg/dL (4-19); BUN/Creat Ratio 16.0 RATIO (10-20); Calcium,Total 9.2 mg/dL (7.6-11.0); Carbon Dioxide 24.4 mmol/L (21.0-32.0); Chloride 95 mmol/L (98-108); Glucose 92 mg/dL (70-99); Potassium 4.5 mmol/L (3.3-5.1)
== END | disposition home or self-care (01) ==
LOC: MTLAB 10:35
PROVIDERS: PCP Family Medicine; Referring Provider Family Medicine; Visit Provider Family Medicine
DX: R79.89 Other specified abnormal findings of blood chemistry (principal); E87.1 Hypo-osmolality and hyponatremia
CPT/HCPCS: 36415; 80048; 84439; 84443; 86376; 86800